=== PATIENT | female | born 1970 | race African-American/Black ===

== ENCOUNTER 2016-12-14 09:08 | Emergency (ER) | payer MEDICARE, MEDICAID ==
[~2016-12-14] VITALS: Ht 157.5 cm; Wt 110.0 kg
[~2016-12-14 09:08] MED LIST: ALBU05 NEB; ARFO15VI2 NEB; BUDE0.5A3 NEB; CLON0.1T PO; CYCL5TAB PO; DIPH25CA83 PO; FURO-151 PO; GABA-531 PO; IPRA0.2S51 IH; LEVE500T19 PO; LOSA50TA20 PO; MONT10TA21 PO; OMEP20CA10 PO; P20 PO; PRED5DRO7 EACHEYE; PRO AIR PO; QUET50TA11 PO; TERBUTALINE GT; THEO200T37 PO; TIOT18CA3 INH; VALPROATE SODIUM GT
[2016-12-14] MEDS ORDERED: SODIUM CHLORIDE 0.9% 1,000 ML IV ONE (09:20)
[2016-12-14] MEDS ORDERED: IPRATROPIUM/ALBUTEROL 0.5-3(2.5)MG/3ML NEB HHN ONE (09:30)
[2016-12-14 10:14] LABS: BASOPHILS % 1.1 % (0.0-2.0); DIFFERENTIAL COMMENT 0; EOSINOPHILS % 0.9 % (0.0-5.0); HEMATOCRIT. 36.8 % (36.0-48.0); HEMOGLOBIN. 11.7 g/dL (12.0-16.0); LYMPHOCYTES % 18.7 % (20.0-50.0); MEAN CORPUSCULAR HEMOGLOBIN 24.5 pg (28.0-32.0); MEAN CORPUSCULAR HGB CONC 31.7 g/dL (31.0-37.0); MEAN CORPUSCULAR VOLUME 77.3 fL (81.0-99.0); MEAN PLATELET VOLUME 7.7 fl (7.4-10.4); MONOCYTES % 5.7 % (2.0-8.0); NEUTROPHILS % 73.6 % (40.0-76.0); PLATELET 380 x1000/uL (130-400); RED BLOOD CELL COUNT 4.77 mill/uL (4.2-5.4); RED CELL DISTRIBUTION WIDTH 19.8 % (11.6-14.6); WHITE BLOOD COUNT 14.9 x1000/uL (4.5-11.0)
[2016-12-14 10:27] LABS: ALANINE AMINOTRANSFERASE 23 IU/L (13-61); ALBUMIN 3.6 g/dL (3.4-5.0); ANION GAP 15; CALCIUM 8.9 mg/dL (8.5-10.1); CARBON DIOXIDE 28 mEq/L (21-32); CHLORIDE 101 mEq/L (98-107); INDEX HEMOLYSI 2 (1-3); INDEX ICTERIC 1 (1-4); INDEX LIPEMIC 1 (1-3); NT PRO B-TYPE NATRIURETIC PEP 97 pg/mL (5-125); TROPONIN I < 0.02 ng/mL (0.00-0.04); UREA NITROGEN BLOOD 15 mg/dL (7-21); eGFR > 60 mL/min (>60)
[2016-12-14 10:32] LABS: LACTIC ACID 2.1 mmol/L (0.4-2.0)
[2016-12-14 10:46] LABS: INR 1.1
[2016-12-14] MEDS ORDERED: ACETYLCYSTEINE 100MG/ML 10% VIAL 4ML INH ONE (12:15)
[2016-12-14] MEDS ORDERED: LORAZEPAM 2MG/ML CPJ IV ONE (12:15)
[2016-12-14 15:34] VITALS: BP 164/92
== END 2016-12-14 21:40 | disposition home or self-care (01) ==
LOC: ER 09:20
DX: J45.909 Unspecified asthma, uncomplicated (principal); I10 Essential (primary) hypertension; R56.9 Unspecified convulsions; Z91.041 Radiographic dye allergy status; Z88.8 Allergy status to other drugs, medicaments and biological substances; Z99.81 Dependence on supplemental oxygen; Z93.0 Tracheostomy status
CPT/HCPCS: 36415; 71010; 80053; 83605; 83880; 84484; 85025; 85610; 87040; 87804; 93005; 94640; 96361; 96374; 99285; J2060; J7030; J7608; J7620

== ENCOUNTER 2017-03-13 23:53 | Inpatient (IN) | payer MEDICARE, MEDICAID ==
[~2017-03-13] VITALS: Ht 152.4 cm; Wt 108.9 kg
[2017-03-14] MEDS ORDERED: SODIUM CHLORIDE 0.9% 1,000 ML IV ONE (00:05)
[2017-03-14] MEDS ORDERED: IPRATROPIUM BROMIDE (0.02%) 0.5MG/2.5ML NEB HHN STA ×2 (00:05→02:17)
[2017-03-14] MEDS ORDERED: MAGNESIUM 2 G PREMIX 50 ML IV ONE (00:15)
[2017-03-14 00:25] LABS: BG BASE EXCESS 1.6 mmol/L (-2.0-2.0); BG CARBOXYHEMOGLOBIN 0.5 % (0.5-1.5); BG DEOXYHEMOGLOBIN 1.6 % (0.0-5.0); BG FRACTION INSPIRED OXYGEN 35; BG HCO3 ACT 24.3 mmol/L (22.0-26.0); BG METHEMOGLOBIN 0.4 % (0.0-1.5); BG OXYGEN SATURATION 98.4 % (92.0-98.5); BG OXYHEMOGLOBIN 97.5 % (94.0-97.0); BG PH 7.512 (7.350-7.450); BG PO2 122.3 mmHg (75.0-100.0); BG SAMPLE SITE RIGHT RADIAL; BG TOTAL HEMOGLOBIN 8.9 g/dL (12.0-18.0); BG VENT MODE MASK - AEROSOL
[2017-03-14] MEDS ORDERED: ALBUTEROL (0.083%) 2.5MG/3ML NEB HHN SCH (00:30)
[2017-03-14 00:34] LABS: BASOPHILS % 2.8 % (0.0-2.0); EOSINOPHILS % 5.6 % (0.0-5.0); HEMATOCRIT. 27.5 % (36.0-48.0); HEMOGLOBIN. 8.3 g/dL (12.0-16.0); LYMPHOCYTES % 23.8 % (20.0-50.0); MEAN CORPUSCULAR HEMOGLOBIN 21.1 pg (28.0-32.0); MEAN CORPUSCULAR VOLUME 69.6 fL (81.0-99.0); MEAN PLATELET VOLUME 8.5 fl (7.4-10.4); MONOCYTES % 9.6 % (2.0-8.0); NEUTROPHILS % 58.2 % (40.0-76.0); PLATELET 211 x1000/uL (130-400); RED BLOOD CELL COUNT 3.95 mill/uL (4.2-5.4); RED CELL DISTRIBUTION WIDTH 22.1 % (11.6-14.6)
[2017-03-14 00:40] LABS: CARBON DIOXIDE 26 mEq/L (21-32); CHLORIDE 108 mEq/L (98-107); TROPONIN I < 0.02 ng/mL (0.00-0.04)
[2017-03-14 00:43] LABS: PLATELET ESTIMATE NORMAL
[2017-03-14] MEDS ORDERED: DIPHENHYDRAMINE 50MG/ML VIAL IV ONE (01:45)
[2017-03-14] MEDS ORDERED: ALBUTEROL (0.083%) 2.5MG/3ML NEB HHN STA (02:17)
[2017-03-14] MEDS ORDERED: MORPHINE SULFATE 4 MG/ML CPJ (NOT FOR IM USE) IV ONE (05:45)
[2017-03-14] MEDS ORDERED: DOCUSATE SODIUM 100MG CAPSULE PO PRN (07:30)
[2017-03-14] MEDS ORDERED: MAGNESIUM/ALUMINUM HYDROXIDE/SIMETHICONE 30ML UDC PO PRN (07:30)
[2017-03-14] MEDS ORDERED: GUAIFENESIN 200MG/10ML SUGAR FREE UDC PO PRN (07:30)
[2017-03-14] MEDS ORDERED: ONDANSETRON HCL 4MG/2ML VIAL IV PRN (07:30)
[2017-03-14] MEDS ORDERED: NA PHOS,M-B/NA PHOS,DI-BA ENEMA 118ML PR PRN (07:30)
[2017-03-14] MEDS ORDERED: ACETAMINOPHEN 325MG TABLET PO PRN (07:30)
[2017-03-14] MEDS ORDERED: CLONIDINE 0.1MG TABLET PO PRN (07:30)
[2017-03-14] MEDS: IPRATROPIUM/ALBUTEROL 0.5-3(2.5)MG/3ML NEB INH PRN ×3 (07:35→21:17)
[2017-03-14 08:40] VITALS: BP 112/63
[2017-03-14] MEDS ORDERED: FUROSEMIDE 40MG/4ML VIAL IVP SCH (10:00)
[2017-03-14] MEDS ORDERED: POTASSIUM CHLORIDE 20MEQ TABLET SR PO SCH (10:00)
[2017-03-14] MEDS: ENOXAPARIN 30MG/0.3ML SYR SUBCUT SCH ×2 (10:11→20:21)
[2017-03-14] MEDS: DIPHENHYDRAMINE 50MG/ML VIAL IV PRN ×3 (10:19→21:41)
[2017-03-14] MEDS: HYDROCODONE/ACETAMINOPHEN 5/325MG TABLET PO PRN ×3 (10:26→20:03)
[2017-03-14 11:10] LABS: CARBON DIOXIDE 26 mEq/L (21-32); CHLORIDE 109 mEq/L (98-107)
[2017-03-14 12:00] VITALS: BP 141/77
[2017-03-14] MEDS: DEXT 5%/0.45% NACL KCL 10MEQ/L 1,000 ML IV SCH (12:09)
[2017-03-14] MEDS: LEVOFLOXACIN 500MG PREMIX 100 ML IV SCH (12:09)
[2017-03-14] MEDS: LORAZEPAM 2MG/ML CPJ IV PRN (12:14)
[2017-03-14] MEDS: TERBUTALINE SULFATE 2.5MG TABLET PO SCH ×2 (13:21→19:49)
[2017-03-14] MEDS: THEOPHYLLINE ANHYDROUS 80 MG/15 ML 120ML PO SCH ×2 (13:22→21:20)
[2017-03-14 16:19] VITALS: BP 132/80
[2017-03-14] MEDS: PREDNISONE 10MG TABLET PO SCH (17:05)
[2017-03-14 20:00] VITALS: BP 130/74
[2017-03-14] MEDS: QUETIAPINE FUMARATE 25MG TABLET PO SCH (20:22)
[2017-03-14] MEDS: LEVETIRACETAM 500MG TABLET PO SCH (20:22)
[2017-03-14] MEDS: HYDROMORPHONE HCL/PF 2MG/ML CPJ IV PRN (20:23)
[2017-03-15] VITALS: BP 118/92
[2017-03-15] MEDS: HYDROMORPHONE HCL/PF 2MG/ML CPJ IV PRN ×6 (00:50→21:43)
[2017-03-15 04:00] VITALS: BP 119/86
[2017-03-15] MEDS: THEOPHYLLINE ANHYDROUS 80 MG/15 ML 120ML PO SCH ×3 (05:32→22:01)
[2017-03-15] MEDS: DIPHENHYDRAMINE 50MG/ML VIAL IV PRN ×3 (05:58→21:43)
[2017-03-15] MEDS: DEXT 5%/0.45% NACL KCL 10MEQ/L 1,000 ML IV SCH ×2 (07:00→13:04)
[2017-03-15] MEDS: IPRATROPIUM/ALBUTEROL 0.5-3(2.5)MG/3ML NEB INH PRN ×4 (07:26→21:15)
[2017-03-15 08:00] VITALS: BP 131/97
[2017-03-15] MEDS: PREDNISONE 10MG TABLET PO SCH ×2 (08:43→17:40)
[2017-03-15] MEDS: TERBUTALINE SULFATE 2.5MG TABLET PO SCH ×3 (08:43→21:49)
[2017-03-15] MEDS: QUETIAPINE FUMARATE 25MG TABLET PO SCH ×2 (08:43→21:49)
[2017-03-15] MEDS: LEVETIRACETAM 500MG TABLET PO SCH ×2 (08:43→21:58)
[2017-03-15] MEDS: ENOXAPARIN 30MG/0.3ML SYR SUBCUT SCH ×2 (08:43→21:00)
[2017-03-15] MEDS: LEVOFLOXACIN 500MG PREMIX 100 ML IV SCH (10:22)
[2017-03-15 12:00] VITALS: BP 133/86
[2017-03-15 16:00] VITALS: BP 135/93
[2017-03-15] MEDS: LORAZEPAM 2MG/ML CPJ IV PRN (16:00)
[2017-03-15 20:00] VITALS: BP 166/105
[2017-03-15] MEDS ORDERED: PANTOPRAZOLE 40MG DR TABLET PO NR (20:30)
[2017-03-16] VITALS: BP 112/80
[2017-03-16] MEDS: IPRATROPIUM/ALBUTEROL 0.5-3(2.5)MG/3ML NEB INH PRN ×3 (01:06→16:13)
[2017-03-16] MEDS: HYDROMORPHONE HCL/PF 2MG/ML CPJ IV PRN ×5 (01:11→21:25)
[2017-03-16] MEDS: DIPHENHYDRAMINE 50MG/ML VIAL IV PRN ×5 (01:11→21:22)
[2017-03-16 04:00] VITALS: BP 102/74
[2017-03-16] MEDS: THEOPHYLLINE ANHYDROUS 80 MG/15 ML 120ML PO SCH ×3 (06:49→23:24)
[2017-03-16] MEDS: PREDNISONE 10MG TABLET PO SCH ×2 (07:04→16:48)
[2017-03-16] MEDS: PANTOPRAZOLE 40MG DR TABLET PO SCH (07:04)
[2017-03-16 08:00] VITALS: BP 123/91
[2017-03-16 08:10] LABS: BASOPHILS % 1.5 % (0.0-2.0); EOSINOPHILS % 8.7 % (0.0-5.0); HEMATOCRIT. 26.2 % (36.0-48.0); HEMOGLOBIN. 7.9 g/dL (12.0-16.0); LYMPHOCYTES % 14.1 % (20.0-50.0); MEAN CORPUSCULAR HEMOGLOBIN 21.1 pg (28.0-32.0); MEAN PLATELET VOLUME 7.4 fl (7.4-10.4); MONOCYTES % 9.2 % (2.0-8.0); NEUTROPHILS % 66.5 % (40.0-76.0); PLATELET 374 x1000/uL (130-400); RED BLOOD CELL COUNT 3.75 mill/uL (4.2-5.4); RED CELL DISTRIBUTION WIDTH 22.5 % (11.6-14.6)
[2017-03-16 08:45] LABS: CARBON DIOXIDE 25 mEq/L (21-32); CHLORIDE 105 mEq/L (98-107)
[2017-03-16] MEDS: ENOXAPARIN 30MG/0.3ML SYR SUBCUT SCH ×3 (09:00→21:24)
[2017-03-16] MEDS: QUETIAPINE FUMARATE 25MG TABLET PO SCH ×2 (09:04→21:22)
[2017-03-16] MEDS: LEVETIRACETAM 500MG TABLET PO SCH ×2 (09:04→21:22)
[2017-03-16] MEDS: TERBUTALINE SULFATE 2.5MG TABLET PO SCH ×3 (09:40→21:22)
[2017-03-16 12:00] VITALS: BP 140/86
[2017-03-16] MEDS: LEVOFLOXACIN 500MG PREMIX 100 ML IV SCH (13:42)
[2017-03-16 16:19] VITALS: BP 139/93
[2017-03-16 20:00] VITALS: BP 124/84
[2017-03-16] MEDS: LORAZEPAM 2MG/ML CPJ IV PRN (22:59)
[2017-03-17] VITALS (7 sets, daily range): BP systolic 111–142; BP diastolic 70–99
[2017-03-17] MEDS: HYDROMORPHONE HCL/PF 2MG/ML CPJ IV PRN ×5 (00:48→21:40)
[2017-03-17] MEDS: DIPHENHYDRAMINE 50MG/ML VIAL IV PRN ×4 (02:36→18:14)
[2017-03-17] MEDS: DEXT 5%/0.45% NACL KCL 10MEQ/L 1,000 ML IV SCH (05:00)
[2017-03-17 06:11] LABS: BASOPHILS % 0.5 % (0.0-2.0); HEMATOCRIT. 24.3 % (36.0-48.0); HEMOGLOBIN. 7.4 g/dL (12.0-16.0); LYMPHOCYTES % 9.5 % (20.0-50.0); MEAN CORPUSCULAR HEMOGLOBIN 21.3 pg (28.0-32.0); MEAN PLATELET VOLUME 7.2 fl (7.4-10.4); MONOCYTES % 9.1 % (2.0-8.0); NEUTROPHILS % 76.9 % (40.0-76.0); PLATELET 385 x1000/uL (130-400); RED BLOOD CELL COUNT 3.48 mill/uL (4.2-5.4); RED CELL DISTRIBUTION WIDTH 22.6 % (11.6-14.6)
[2017-03-17] MEDS: THEOPHYLLINE ANHYDROUS 80 MG/15 ML 120ML PO SCH ×3 (06:12→21:29)
[2017-03-17] MEDS: PANTOPRAZOLE 40MG DR TABLET PO SCH (06:12)
[2017-03-17 06:59] LABS: CARBON DIOXIDE 26 mEq/L (21-32); CHLORIDE 107 mEq/L (98-107)
[2017-03-17] MEDS: PREDNISONE 10MG TABLET PO SCH ×2 (08:04→17:19)
[2017-03-17] MEDS: QUETIAPINE FUMARATE 25MG TABLET PO SCH ×2 (08:04→21:29)
[2017-03-17] MEDS: LEVETIRACETAM 500MG TABLET PO SCH ×2 (08:04→21:29)
[2017-03-17] MEDS: TERBUTALINE SULFATE 2.5MG TABLET PO SCH ×3 (08:04→21:29)
[2017-03-17] MEDS: ENOXAPARIN 30MG/0.3ML SYR SUBCUT SCH ×2 (08:05→21:00)
[2017-03-17] MEDS: IPRATROPIUM/ALBUTEROL 0.5-3(2.5)MG/3ML NEB INH PRN ×2 (08:59→20:58)
[2017-03-17] MEDS: LEVOFLOXACIN 500MG PREMIX 100 ML IV SCH (10:06)
[2017-03-17] MEDS: LORAZEPAM 2MG/ML CPJ IV PRN (18:15)
[2017-03-18] MEDS: IPRATROPIUM/ALBUTEROL 0.5-3(2.5)MG/3ML NEB INH PRN ×3 (00:30→09:19)
[2017-03-18] MEDS: DEXT 5%/0.45% NACL KCL 10MEQ/L 1,000 ML IV SCH (01:00)
[2017-03-18 04:50] VITALS: BP 130/92
[2017-03-18] MEDS: HYDROMORPHONE HCL/PF 2MG/ML CPJ IV PRN (05:01)
[2017-03-18] MEDS: DIPHENHYDRAMINE 50MG/ML VIAL IV PRN (05:03)
[2017-03-18] MEDS: THEOPHYLLINE ANHYDROUS 80 MG/15 ML 120ML PO SCH (05:07)
[2017-03-18] MEDS: PANTOPRAZOLE 40MG DR TABLET PO SCH (05:08)
[2017-03-18 08:00] VITALS: BP 102/71
[2017-03-18] MEDS: ENOXAPARIN 30MG/0.3ML SYR SUBCUT SCH (08:00)
[2017-03-18] MEDS: TERBUTALINE SULFATE 2.5MG TABLET PO SCH (08:19)
[2017-03-18] MEDS: PREDNISONE 10MG TABLET PO SCH (08:19)
[2017-03-18] MEDS: LEVETIRACETAM 500MG TABLET PO SCH (08:19)
[2017-03-18] MEDS: QUETIAPINE FUMARATE 25MG TABLET PO SCH (08:19)
[2017-03-18 09:43] VITALS: BP 102/71
== END 2017-03-18 13:55 | disposition home or self-care (01) | DRG 177 ==
LOC: ER 23:55 → 8WST 03-14 05:46 → EDBEDREQTM 03-14 05:54 → EDBEDREQ 03-14 05:54 → ENRESERV 03-14 07:29
PROVIDERS: ADMIT Internal Medicine; ATTEND Internal Medicine
PROC: 05HA33Z Insertion of Infusion Device into Left Brachial Vein, Percutaneous Approach (ICD-10-PCS; principal; 2017-03-16)
PROC: B54NZZA Ultrasonography of Left Upper Extremity Veins, Guidance (ICD-10-PCS; 2017-03-16)
DX: J69.0 Pneumonitis due to inhalation of food and vomit (principal); J96.20 Acute and chronic respiratory failure, unspecified whether with hypoxia or hypercapnia; J44.1 Chronic obstructive pulmonary disease with (acute) exacerbation; Z68.42 Body mass index [BMI] 45.0-49.9, adult; K94.29 Other complications of gastrostomy; E87.6 Hypokalemia; D63.8 Anemia in other chronic diseases classified elsewhere; E86.0 Dehydration; G40.909 Epilepsy, unspecified, not intractable, without status epilepticus; E66.9 Obesity, unspecified; I10 Essential (primary) hypertension; E11.9 Type 2 diabetes mellitus without complications; E78.5 Hyperlipidemia, unspecified; L25.3 Unspecified contact dermatitis due to other chemical products; J32.9 Chronic sinusitis, unspecified; K21.9 Gastro-esophageal reflux disease without esophagitis; Z86.11 Personal history of tuberculosis; Z93.0 Tracheostomy status; Z91.041 Radiographic dye allergy status; Z88.8 Allergy status to other drugs, medicaments and biological substances; Z91.018 Allergy to other foods; Z79.899 Other long term (current) drug therapy; Z82.49 Family history of ischemic heart disease and other diseases of the circulatory system; Y83.3 Surgical operation with formation of external stoma as the cause of abnormal reaction of the patient, or of later complication, without mention of misadventure at the time of the procedure
CPT/HCPCS: 36415; 36569; 36600; 71010; 76937; 80048; 80053; 82375; 82805; 83880; 84484; 85025; 93005; 94640; 96361; 96365; 96366; 96375; 99285; C1725; C1893; J1170; J1200; J1650; J1940; J1956; J2060; J2270; J3475; J7030; J7512; J7611; J7620

== ENCOUNTER 2017-04-13 10:26 | Inpatient (IN) | payer MEDICARE, MEDICAID ==
[~2017-04-13] VITALS: Ht 157.5 cm; Wt 104.3 kg
[~2017-04-13 10:26] MED LIST changes: +QUET50TA PO; -QUET50TA11 PO; +THEO200T17 PO; -THEO200T37 PO
[2017-04-13] MEDS ORDERED: ALBUTEROL (0.083%) 2.5MG/3ML NEB HHN STA (10:39)
[2017-04-13] MEDS ORDERED: IPRATROPIUM BROMIDE (0.02%) 0.5MG/2.5ML NEB HHN STA (10:39)
[2017-04-13] MEDS ORDERED: SODIUM CHLORIDE 0.9% 1,000 ML IV ONE (10:39)
[2017-04-13] MEDS ORDERED: LEVOFLOXACIN 750MG PREMIX 150 ML IV ONE (11:15)
[2017-04-13] MEDS ORDERED: VANCOMYCIN 1 G PREMIX 200 ML IV SCH (11:15)
[2017-04-13 11:38] LABS: BASOPHILS % 0.5 % (0.0-2.0); EOSINOPHILS % 4.9 % (0.0-5.0); HEMOGLOBIN. 9.4 g/dL (12.0-16.0); LYMPHOCYTES % 21.4 % (20.0-50.0); MEAN CORPUSCULAR HEMOGLOBIN 21.5 pg (28.0-32.0); MEAN PLATELET VOLUME 7.3 fl (7.4-10.4); MONOCYTES % 9.4 % (2.0-8.0); NEUTROPHILS % 63.8 % (40.0-76.0); PLATELET 386 x1000/uL (130-400); RED BLOOD CELL COUNT 4.36 mill/uL (4.2-5.4)
[2017-04-13 11:44] LABS: PARTIAL THROMBOPLASTIN TIME 23.3 sec (24.0-34.0); PROTHROMBIN TIME 10.7 sec
[2017-04-13 11:46] LABS: CHLORIDE 105 mEq/L (98-107)
[2017-04-13 11:48] LABS: CARBON DIOXIDE 29 mEq/L (21-32)
[2017-04-13 11:52] LABS: HCG SCREEN NEGATIVE
[2017-04-13 11:55] LABS: TROPONIN I < 0.02 ng/mL (0.00-0.04)
[2017-04-13 11:57] LABS: PLATELET ESTIMATE NORMAL
[2017-04-13] MEDS ORDERED: POTASSIUM CHLORIDE 20MEQ TABLET SR PO ONE (12:15)
[2017-04-13] MEDS ORDERED: LIDOCAINE HCL/PF 1% 2ML VIAL ONE (12:33)
[2017-04-13 12:54] LABS: BG BASE EXCESS -1.1 mmol/L (-2.0-2.0); BG CARBOXYHEMOGLOBIN 0.3 % (0.5-1.5); BG DEOXYHEMOGLOBIN 1.7 % (0.0-5.0); BG FRACTION INSPIRED OXYGEN 35; BG HCO3 ACT 22.3 mmol/L (22.0-26.0); BG METHEMOGLOBIN 0.1 % (0.0-1.5); BG OXYGEN SATURATION 98.3 % (92.0-98.5); BG OXYHEMOGLOBIN 97.9 % (94.0-97.0); BG PCO2 32.6 mmHg (35.0-45.0); BG PH 7.453 (7.350-7.450); BG PO2 128.4 mmHg (75.0-100.0); BG SAMPLE SITE RIGHT RADIAL; BG TOTAL HEMOGLOBIN 10.1 g/dL (12.0-18.0); BG VENT MODE MASK - AEROSOL
[2017-04-13] MEDS ORDERED: NITROGLYCERIN OINT 1GM/INCH UDPKT TD STA (13:32)
[2017-04-13] MEDS ORDERED: ASPIRIN 81MG TABLET GT STA (13:32)
[2017-04-13] MEDS ORDERED: ONDANSETRON HCL 4MG/2ML VIAL IV STA (13:32)
[2017-04-13] MEDS ORDERED: MORPHINE SULFATE 4 MG/ML CPJ (NOT FOR IM USE) IV STA (13:32)
[2017-04-13] MEDS ORDERED: MORPHINE SULFATE 4 MG/ML CPJ (NOT FOR IM USE) IV ONE (14:12)
[2017-04-13] MEDS ORDERED: ASPIRIN 81MG TABLET ONE (14:13)
[2017-04-13] MEDS ORDERED: NITROGLYCERIN OINT 1GM/INCH UDPKT TD ONE (14:13)
[2017-04-13] MEDS ORDERED: ONDANSETRON HCL 4MG/2ML VIAL ONE (14:13)
[2017-04-13] MEDS ORDERED: DIPHENHYDRAMINE 50MG CAPSULE PO PRN (15:15)
[2017-04-13] MEDS ORDERED: CLONIDINE 0.1MG TABLET PO PRN (15:15)
[2017-04-13] MEDS: DIVALPROEX SODIUM 250MG ER TABLET PO SCH (15:45)
[2017-04-13] MEDS ORDERED: ALPRAZOLAM 0.25 MG TABLET PO PRN (16:15)
[2017-04-13] MEDS: IPRATROPIUM/ALBUTEROL 0.5-3(2.5)MG/3ML NEB HHN SCH ×2 (16:23→21:10)
[2017-04-13] MEDS: PREDNISONE 20MG TABLET PO SCH (16:44)
[2017-04-13] MEDS ORDERED: LEVETIRACETAM 500 MG in SODIUM CHLORIDE 0.9% 100 ML IV SCH (18:00)
[2017-04-13] MEDS: HYDROMORPHONE HCL/PF 2MG/ML CPJ IM PRN ×2 (18:48→22:02)
[2017-04-13] MEDS: LORAZEPAM 1MG TABLET PO PRN (20:01)
[2017-04-13] MEDS: LEVETIRACETAM 500MG/5ML CUP PO SCH (20:01)
[2017-04-13] MEDS: TERBUTALINE SULFATE 2.5MG TABLET PO SCH (20:01)
[2017-04-13] MEDS: QUETIAPINE FUMARATE 50MG TABLET PO SCH (20:01)
[2017-04-13] MEDS: FUROSEMIDE 40MG TABLET PO SCH (20:01)
[2017-04-13] MEDS: CYCLOBENZAPRINE 10MG TABLET PO SCH (20:05)
[2017-04-13] MEDS: DIPHENHYDRAMINE 50MG CAPSULE PO PRN (21:16)
[2017-04-13] MEDS: THEOPHYLLINE ANHYDROUS 80 MG/15 ML 120ML PO SCH (21:16)
[2017-04-14] MEDS: IPRATROPIUM/ALBUTEROL 0.5-3(2.5)MG/3ML NEB HHN SCH ×6 (01:00→21:14)
[2017-04-14] MEDS: THEOPHYLLINE ANHYDROUS 80 MG/15 ML 120ML PO SCH ×3 (05:33→21:23)
[2017-04-14 06:49] LABS: BASOPHILS % 0.2 % (0.0-2.0); EOSINOPHILS % 2.2 % (0.0-5.0); HEMATOCRIT. 29.8 % (36.0-48.0); HEMOGLOBIN. 9.1 g/dL (12.0-16.0); LYMPHOCYTES % 10.5 % (20.0-50.0); MEAN CORPUSCULAR HEMOGLOBIN 21.8 pg (28.0-32.0); MEAN CORPUSCULAR VOLUME 71.1 fL (81.0-99.0); MEAN PLATELET VOLUME 8.6 fl (7.4-10.4); MONOCYTES % 6.1 % (2.0-8.0); PLATELET 325 x1000/uL (130-400); RED CELL DISTRIBUTION WIDTH 25.2 % (11.6-14.6)
[2017-04-14 07:00] LABS: CARBON DIOXIDE 28 mEq/L (21-32); CHLORIDE 104 mEq/L (98-107); THEOPHYLLINE 4.7 ug/mL (10-20)
[2017-04-14] MEDS: HYDROMORPHONE HCL/PF 2MG/ML CPJ IM PRN ×3 (07:07→20:19)
[2017-04-14] MEDS: QUETIAPINE FUMARATE 50MG TABLET PO SCH ×2 (09:30→20:18)
[2017-04-14] MEDS: DIVALPROEX SODIUM 250MG ER TABLET PO SCH (09:30)
[2017-04-14] MEDS: LOSARTAN POTASSIUM 50 MG TABLET PO SCH (09:30)
[2017-04-14] MEDS: FUROSEMIDE 40MG TABLET PO SCH ×2 (09:30→20:18)
[2017-04-14] MEDS: POTASSIUM CHLORIDE 20MEQ TABLET SR PO SCH (09:30)
[2017-04-14] MEDS: TERBUTALINE SULFATE 2.5MG TABLET PO SCH ×3 (09:30→19:51)
[2017-04-14] MEDS: LEVETIRACETAM 500MG/5ML CUP PO SCH ×2 (09:30→20:18)
[2017-04-14] MEDS: PREDNISONE 20MG TABLET PO SCH (09:30)
[2017-04-14] MEDS: DIPHENHYDRAMINE 50MG CAPSULE PO PRN ×3 (12:29→21:21)
[2017-04-14] MEDS: LORAZEPAM 1MG TABLET PO PRN ×2 (12:29→19:51)
[2017-04-14] MEDS: DEXAMETHASONE 10 MG/ML VIAL IV SCH ×2 (14:46→20:57)
[2017-04-14] MEDS: DEXT 5%/0.9% NACL 1,000 ML IV SCH (14:46)
[2017-04-14] MEDS: CYCLOBENZAPRINE 10MG TABLET PO SCH (20:18)
[2017-04-14] MEDS ORDERED: ONDANSETRON HCL 4MG/2ML VIAL IV PRN (21:00)
[2017-04-15] MEDS: IPRATROPIUM/ALBUTEROL 0.5-3(2.5)MG/3ML NEB HHN SCH ×6 (00:17→20:07)
[2017-04-15] MEDS: DIPHENHYDRAMINE 50MG CAPSULE PO PRN ×2 (01:27→05:34)
[2017-04-15] MEDS: HYDROMORPHONE HCL/PF 2MG/ML CPJ IM PRN ×5 (02:42→20:07)
[2017-04-15] MEDS: LORAZEPAM 1MG TABLET PO PRN (02:42)
[2017-04-15] MEDS: DEXAMETHASONE 10 MG/ML VIAL IV SCH (05:40)
[2017-04-15] MEDS: THEOPHYLLINE ANHYDROUS 80 MG/15 ML 120ML PO SCH ×3 (05:42→21:03)
[2017-04-15 06:05] LABS: BASOPHILS % 0.1 % (0.0-2.0); HEMATOCRIT. 27.9 % (36.0-48.0); HEMOGLOBIN. 8.5 g/dL (12.0-16.0); LYMPHOCYTES % 7.2 % (20.0-50.0); MEAN CORPUSCULAR HEMOGLOBIN 21.6 pg (28.0-32.0); MEAN CORPUSCULAR VOLUME 70.7 fL (81.0-99.0); MEAN PLATELET VOLUME 7.9 fl (7.4-10.4); MONOCYTES % 2.7 % (2.0-8.0); PLATELET 357 x1000/uL (130-400); RED BLOOD CELL COUNT 3.94 mill/uL (4.2-5.4); RED CELL DISTRIBUTION WIDTH 25.1 % (11.6-14.6)
[2017-04-15 06:39] LABS: CARBON DIOXIDE 26 mEq/L (21-32); CHLORIDE 100 mEq/L (98-107); THEOPHYLLINE 15.3 ug/mL (10-20)
[2017-04-15] MEDS: DIVALPROEX SODIUM 250MG ER TABLET PO SCH (08:35)
[2017-04-15] MEDS: TERBUTALINE SULFATE 2.5MG TABLET PO SCH ×4 (08:35→20:05)
[2017-04-15] MEDS: QUETIAPINE FUMARATE 50MG TABLET PO SCH ×3 (08:35→20:05)
[2017-04-15] MEDS: LEVETIRACETAM 500MG/5ML CUP PO SCH ×3 (08:35→20:05)
[2017-04-15] MEDS: FUROSEMIDE 40MG TABLET PO SCH ×3 (08:35→20:05)
[2017-04-15] MEDS: POTASSIUM CHLORIDE 20MEQ TABLET SR PO SCH (08:35)
[2017-04-15] MEDS: LOSARTAN POTASSIUM 50 MG TABLET PO SCH ×2 (08:37→08:55)
[2017-04-15 09:15] LABS: BG CARBOXYHEMOGLOBIN 0.3 % (0.5-1.5); BG DEOXYHEMOGLOBIN 0.9 % (0.0-5.0); BG FRACTION INSPIRED OXYGEN 50; BG METHEMOGLOBIN 0.1 % (0.0-1.5); BG OXYGEN SATURATION 99.1 % (92.0-98.5); BG OXYHEMOGLOBIN 98.7 % (94.0-97.0); BG PCO2 34.2 mmHg (35.0-45.0); BG PH 7.515 (7.350-7.450); BG PO2 168.4 mmHg (75.0-100.0); BG PRESSURE SUPPORT 14; BG SAMPLE SITE RIGHT RADIAL; BG TIDAL VOLUME(mL) 650 mL; BG TOTAL HEMOGLOBIN 9.8 g/dL (12.0-18.0); BG VENT MODE VENT - SIMV; BG VENT RATE 6 set
[2017-04-15] MEDS ORDERED: DIPHENHYDRAMINE 50MG CAPSULE PO PRN (11:00)
[2017-04-15] MEDS: POTASSIUM CHLORIDE 20MEQ/PACKET PO SCH (12:18)
[2017-04-15] MEDS: DEXT 5%/0.9% NACL 1,000 ML IV SCH ×2 (12:19→20:06)
[2017-04-15] MEDS ORDERED: LIDOCAINE HCL/PF 1% 2ML VIAL ONE (13:04)
[2017-04-15] MEDS: DIPHENHYDRAMINE 50MG/ML VIAL IV PRN ×2 (13:33→20:05)
[2017-04-15] MEDS: DIPHENHYDRAMINE HCL/ZINC ACET 28 GM CREAM TOP PRN (13:35)
[2017-04-15] MEDS: CYCLOBENZAPRINE 10MG TABLET PO SCH (20:05)
[2017-04-16] MEDS: IPRATROPIUM/ALBUTEROL 0.5-3(2.5)MG/3ML NEB HHN SCH ×6 (00:01→20:21)
[2017-04-16] MEDS: HYDROMORPHONE HCL/PF 2MG/ML CPJ IM PRN ×6 (00:19→23:47)
[2017-04-16] MEDS: DIPHENHYDRAMINE 50MG/ML VIAL IV PRN ×4 (02:05→23:47)
[2017-04-16] MEDS: THEOPHYLLINE ANHYDROUS 80 MG/15 ML 120ML PO SCH ×3 (05:04→22:46)
[2017-04-16 07:42] LABS: CARBON DIOXIDE 29 mEq/L (21-32); CHLORIDE 103 mEq/L (98-107); THEOPHYLLINE 14.1 ug/mL (10-20)
[2017-04-16] MEDS: QUETIAPINE FUMARATE 50MG TABLET PO SCH ×2 (08:09→20:15)
[2017-04-16] MEDS: LOSARTAN POTASSIUM 50 MG TABLET PO SCH (08:09)
[2017-04-16] MEDS: PREDNISONE 20MG TABLET PO SCH (08:09)
[2017-04-16] MEDS: FUROSEMIDE 40MG TABLET PO SCH ×2 (08:09→20:14)
[2017-04-16] MEDS: LEVETIRACETAM 500MG/5ML CUP PO SCH ×2 (08:09→20:13)
[2017-04-16] MEDS: DIVALPROEX SODIUM 250MG ER TABLET PO SCH (08:09)
[2017-04-16] MEDS: TERBUTALINE SULFATE 2.5MG TABLET PO SCH ×3 (08:09→20:12)
[2017-04-16] MEDS: POTASSIUM CHLORIDE 20MEQ/PACKET PO SCH (08:09)
[2017-04-16 13:25] LABS: HEMOGLOBIN. 8.1 g/dL (12.0-16.0); MEAN CORPUSCULAR HEMOGLOBIN 21.6 pg (28.0-32.0); MEAN CORPUSCULAR VOLUME 71.8 fL (81.0-99.0); MEAN PLATELET VOLUME 7.6 fl (7.4-10.4); PLATELET 284 x1000/uL (130-400); RED BLOOD CELL COUNT 3.76 mill/uL (4.2-5.4); RED CELL DISTRIBUTION WIDTH 25.4 % (11.6-14.6)
[2017-04-16 14:06] LABS: PLATELET ESTIMATE NORMAL
[2017-04-16 17:49] LABS: BG BASE EXCESS -4.6 mmol/L (-2.0-2.0); BG CARBOXYHEMOGLOBIN 0.3 % (0.5-1.5); BG DEOXYHEMOGLOBIN 5.3 % (0.0-5.0); BG FRACTION INSPIRED OXYGEN 21; BG HCO3 ACT 22.1 mmol/L (22.0-26.0); BG METHEMOGLOBIN 0.1 % (0.0-1.5); BG OXYGEN SATURATION 94.7 % (92.0-98.5); BG OXYHEMOGLOBIN 94.3 % (94.0-97.0); BG PCO2 47.9 mmHg (35.0-45.0); BG PH 7.281 (7.350-7.450); BG PO2 75.4 mmHg (75.0-100.0); BG SAMPLE SITE RIGHT RADIAL; BG TOTAL HEMOGLOBIN 10.4 g/dL (12.0-18.0); BG VENT MODE ROOM AIR
[2017-04-16] MEDS: CYCLOBENZAPRINE 10MG TABLET PO SCH (20:13)
[2017-04-16] MEDS: DIPHENHYDRAMINE HCL/ZINC ACET 28 GM CREAM TOP PRN (22:31)
[2017-04-17] MEDS: IPRATROPIUM/ALBUTEROL 0.5-3(2.5)MG/3ML NEB HHN SCH ×6 (00:36→20:18)
[2017-04-17] MEDS: HYDROMORPHONE HCL/PF 2MG/ML CPJ IM PRN ×4 (04:24→19:44)
[2017-04-17] MEDS: THEOPHYLLINE ANHYDROUS 80 MG/15 ML 120ML PO SCH ×3 (06:03→22:14)
[2017-04-17 07:47] LABS: BASOPHILS % 0.4 % (0.0-2.0); EOSINOPHILS % 2.2 % (0.0-5.0); HEMATOCRIT. 29.5 % (36.0-48.0); HEMOGLOBIN. 8.6 g/dL (12.0-16.0); LYMPHOCYTES % 16.9 % (20.0-50.0); MEAN CORPUSCULAR VOLUME 71.5 fL (81.0-99.0); MEAN PLATELET VOLUME 8.9 fl (7.4-10.4); MONOCYTES % 6.4 % (2.0-8.0); NEUTROPHILS % 74.1 % (40.0-76.0); PLATELET 317 x1000/uL (130-400); RED BLOOD CELL COUNT 4.12 mill/uL (4.2-5.4); RED CELL DISTRIBUTION WIDTH 25.4 % (11.6-14.6)
[2017-04-17 08:15] LABS: CARBON DIOXIDE 30 mEq/L (21-32); CHLORIDE 100 mEq/L (98-107); THEOPHYLLINE 5.4 ug/mL (10-20)
[2017-04-17] MEDS: LOSARTAN POTASSIUM 50 MG TABLET PO SCH (08:35)
[2017-04-17] MEDS: TERBUTALINE SULFATE 2.5MG TABLET PO SCH ×3 (08:35→20:51)
[2017-04-17] MEDS: DIVALPROEX SODIUM 250MG ER TABLET PO SCH (08:35)
[2017-04-17] MEDS: PREDNISONE 20MG TABLET PO SCH (08:35)
[2017-04-17] MEDS: FUROSEMIDE 40MG TABLET PO SCH ×2 (08:35→20:51)
[2017-04-17] MEDS: LEVETIRACETAM 500MG/5ML CUP PO SCH ×2 (08:35→20:51)
[2017-04-17] MEDS: POTASSIUM CHLORIDE 20MEQ/PACKET PO SCH (08:35)
[2017-04-17] MEDS: DIPHENHYDRAMINE 50MG/ML VIAL IV PRN ×2 (08:37→19:43)
[2017-04-17] MEDS: QUETIAPINE FUMARATE 50MG TABLET PO SCH ×2 (08:37→20:51)
[2017-04-17] MEDS: DEXT 5%/0.9% NACL 1,000 ML IV SCH (11:10)
[2017-04-17] MEDS: CYCLOBENZAPRINE 10MG TABLET PO SCH (20:51)
[2017-04-18] MEDS: IPRATROPIUM/ALBUTEROL 0.5-3(2.5)MG/3ML NEB HHN SCH ×6 (00:15→20:05)
[2017-04-18] MEDS: HYDROMORPHONE HCL/PF 2MG/ML CPJ IM PRN ×5 (01:14→22:33)
[2017-04-18] MEDS: DIPHENHYDRAMINE 50MG/ML VIAL IV PRN ×4 (01:50→22:32)
[2017-04-18] MEDS: THEOPHYLLINE ANHYDROUS 80 MG/15 ML 120ML PO SCH ×3 (05:16→20:54)
[2017-04-18 07:06] LABS: CARBON DIOXIDE 34 mEq/L (21-32); CHLORIDE 97 mEq/L (98-107); THEOPHYLLINE 8.1 ug/mL (10-20)
[2017-04-18] MEDS: DIVALPROEX SODIUM 250MG ER TABLET PO SCH (08:18)
[2017-04-18] MEDS: TERBUTALINE SULFATE 2.5MG TABLET PO SCH ×3 (08:18→20:53)
[2017-04-18] MEDS: QUETIAPINE FUMARATE 50MG TABLET PO SCH ×2 (08:18→20:53)
[2017-04-18] MEDS: FUROSEMIDE 40MG TABLET PO SCH ×2 (08:18→20:53)
[2017-04-18] MEDS: POTASSIUM CHLORIDE 20MEQ/PACKET PO SCH (08:18)
[2017-04-18] MEDS: LEVETIRACETAM 500MG/5ML CUP PO SCH ×2 (08:19→20:53)
[2017-04-18] MEDS: LOSARTAN POTASSIUM 50 MG TABLET PO SCH (08:19)
[2017-04-18] MEDS: PREDNISONE 20MG TABLET PO SCH (08:19)
[2017-04-18] MEDS: DEXT 5%/0.9% NACL 1,000 ML IV SCH (12:00)
[2017-04-18] MEDS: CYCLOBENZAPRINE 10MG TABLET PO SCH (20:53)
[2017-04-18 21:14] LABS: CARBON DIOXIDE 32 mEq/L (21-32); CHLORIDE 95 mEq/L (98-107)
[2017-04-19] MEDS: IPRATROPIUM/ALBUTEROL 0.5-3(2.5)MG/3ML NEB HHN SCH ×6 (00:18→22:13)
[2017-04-19] MEDS: DIPHENHYDRAMINE HCL/ZINC ACET 28 GM CREAM TOP PRN ×2 (00:53→23:19)
[2017-04-19] MEDS: HYDROMORPHONE HCL/PF 2MG/ML CPJ IM PRN ×5 (04:59→23:51)
[2017-04-19] MEDS: THEOPHYLLINE ANHYDROUS 80 MG/15 ML 120ML PO SCH ×3 (05:00→23:18)
[2017-04-19] MEDS ORDERED: CYCL5TAB PO (08:25)
[2017-04-19] MEDS: DIVALPROEX SODIUM 250MG ER TABLET PO SCH (08:50)
[2017-04-19] MEDS: FUROSEMIDE 40MG TABLET PO SCH ×2 (08:50→20:20)
[2017-04-19] MEDS: LOSARTAN POTASSIUM 50 MG TABLET PO SCH (08:50)
[2017-04-19] MEDS: TERBUTALINE SULFATE 2.5MG TABLET PO SCH ×2 (08:50→13:31)
[2017-04-19] MEDS: QUETIAPINE FUMARATE 50MG TABLET PO SCH ×2 (08:50→20:20)
[2017-04-19] MEDS: LEVETIRACETAM 500MG/5ML CUP PO SCH ×2 (08:50→20:20)
[2017-04-19] MEDS: PREDNISONE 20MG TABLET PO SCH (08:50)
[2017-04-19] MEDS: DIPHENHYDRAMINE 50MG/ML VIAL IV PRN ×2 (08:50→20:20)
[2017-04-19] MEDS: POTASSIUM CHLORIDE 20MEQ/PACKET PO SCH (08:54)
[2017-04-19] MEDS: CYCLOBENZAPRINE 10MG TABLET PO SCH (20:20)
[2017-04-20] MEDS: IPRATROPIUM/ALBUTEROL 0.5-3(2.5)MG/3ML NEB HHN SCH ×5 (01:32→15:47)
[2017-04-20] MEDS: DIPHENHYDRAMINE 50MG/ML VIAL IV PRN ×3 (05:59→16:50)
[2017-04-20] MEDS: THEOPHYLLINE ANHYDROUS 80 MG/15 ML 120ML PO SCH ×2 (06:00→14:25)
[2017-04-20] MEDS: HYDROMORPHONE HCL/PF 2MG/ML CPJ IM PRN ×4 (06:00→16:50)
[2017-04-20] MEDS: LOSARTAN POTASSIUM 50 MG TABLET PO SCH (09:16)
[2017-04-20] MEDS: PREDNISONE 20MG TABLET PO SCH (09:16)
[2017-04-20] MEDS: QUETIAPINE FUMARATE 50MG TABLET PO SCH (09:16)
[2017-04-20] MEDS: FUROSEMIDE 40MG TABLET PO SCH (09:16)
[2017-04-20] MEDS: LEVETIRACETAM 500MG/5ML CUP PO SCH (09:17)
[2017-04-20] MEDS: TERBUTALINE SULFATE 2.5MG TABLET PO SCH ×2 (09:17→14:24)
[2017-04-20] MEDS: DIVALPROEX SODIUM 250MG ER TABLET PO SCH (09:17)
[2017-04-20] MEDS: POTASSIUM CHLORIDE 20MEQ/PACKET PO SCH (09:17)
[2017-04-20] MEDS: DEXT 5%/0.9% NACL 1,000 ML IV SCH (12:00)
[2017-04-20] MEDS: DIPHENHYDRAMINE 50MG CAPSULE PO PRN (12:43)
[2017-04-20 13:09] LABS: BG BASE EXCESS 10.7 mmol/L (-2.0-2.0); BG CARBOXYHEMOGLOBIN 0.2 % (0.5-1.5); BG DEOXYHEMOGLOBIN 9.3 % (0.0-5.0); BG METHEMOGLOBIN 0.3 % (0.0-1.5); BG OXYGEN SATURATION 90.7 % (92.0-98.5); BG OXYHEMOGLOBIN 90.2 % (94.0-97.0); BG PCO2 51.4 mmHg (35.0-45.0); BG PH 7.463 (7.350-7.450); BG PO2 63.4 mmHg (75.0-100.0); BG SAMPLE SITE RIGHT RADIAL; BG TOTAL HEMOGLOBIN 10.7 g/dL (12.0-18.0); BG VENT MODE ROOM AIR
[2017-04-20 17:01] VITALS: BP 142/79
== END 2017-04-20 17:50 | disposition home or self-care (01) | DRG 208 ==
LOC: ER 11:02 → EDBEDREQ 12:05 → ENRESERV 12:28 → 5EST 15:15
PROVIDERS: ADMIT Internal Medicine Pulmonary Disease; ATTEND Internal Medicine Pulmonary Disease
PROC: 5A1945Z Respiratory Ventilation, 24-96 Consecutive Hours (ICD-10-PCS; principal; 2017-04-14)
PROC: 02HV33Z Insertion of Infusion Device into Superior Vena Cava, Percutaneous Approach (ICD-10-PCS; 2017-04-14)
PROC: B548ZZA Ultrasonography of Superior Vena Cava, Guidance (ICD-10-PCS; 2017-04-14)
PROC: 5A1D00Z (ICD-10-PCS; 2017-04-18)
DX: J45.902 Unspecified asthma with status asthmaticus (principal); I13.2 Hypertensive heart and chronic kidney disease with heart failure and with stage 5 chronic kidney disease, or end stage renal disease; J96.10 Chronic respiratory failure, unspecified whether with hypoxia or hypercapnia; N18.6 End stage renal disease; I50.30 Unspecified diastolic (congestive) heart failure; J98.11 Atelectasis; Z68.41 Body mass index [BMI] 40.0-44.9, adult; D50.9 Iron deficiency anemia, unspecified; E11.21 Type 2 diabetes mellitus with diabetic nephropathy; E66.9 Obesity, unspecified; E78.00 Pure hypercholesterolemia, unspecified; E87.6 Hypokalemia; E88.81 Metabolic syndrome and other insulin resistance; F32.9 Major depressive disorder, single episode, unspecified; F41.9 Anxiety disorder, unspecified; G40.909 Epilepsy, unspecified, not intractable, without status epilepticus; G43.909 Migraine, unspecified, not intractable, without status migrainosus; H40.9 Unspecified glaucoma; I49.3 Ventricular premature depolarization; K21.9 Gastro-esophageal reflux disease without esophagitis; K64.9 Unspecified hemorrhoids; E11.22 Type 2 diabetes mellitus with diabetic chronic kidney disease; K59.00 Constipation, unspecified; M54.9 Dorsalgia, unspecified; M19.90 Unspecified osteoarthritis, unspecified site; J32.9 Chronic sinusitis, unspecified; I83.90 Asymptomatic varicose veins of unspecified lower extremity; M81.0 Age-related osteoporosis without current pathological fracture; Z93.0 Tracheostomy status; Z99.2 Dependence on renal dialysis; Z88.6 Allergy status to analgesic agent; Z91.041 Radiographic dye allergy status; Z88.8 Allergy status to other drugs, medicaments and biological substances; Z91.018 Allergy to other foods; Z79.899 Other long term (current) drug therapy; Z79.52 Long term (current) use of systemic steroids; Z87.891 Personal history of nicotine dependence; Z86.73 Personal history of transient ischemic attack (TIA), and cerebral infarction without residual deficits; Z82.49 Family history of ischemic heart disease and other diseases of the circulatory system
CPT/HCPCS: 36415; 36569; 36600; 71010; 76937; 80048; 80053; 80198; 82375; 82805; 83605; 83690; 83735; 83880; 84484; 84703; 85025; 85610; 85730; 87040; 93005; 93306; 94002; 94003; 94620; 94640; 96365; 96368; 96375; 99291; C1725; J1100; J1170; J1200; J1953; J1956; J2270; J2405; J3370; J3490; J7030; J7042; J7050; J7070; J7512; J7611; J7620; Q0163

== ENCOUNTER 2017-05-14 19:04 | Emergency (ER) | payer MEDICARE, MEDICAID ==
[~2017-05-14] VITALS: Ht 157.5 cm; Wt 78.6 kg
[2017-05-14] MEDS ORDERED: SODIUM CHLORIDE 0.9% 500 ML IV ONE (21:24)
[2017-05-14 22:06] LABS: CHLORIDE 99 mEq/L (98-107)
[2017-05-14 22:08] LABS: PROTHROMBIN TIME 10.1 sec (9.4-11.6)
[2017-05-14 22:11] LABS: PARTIAL THROMBOPLASTIN TIME < 20.0 sec (23.4-31.0)
[2017-05-14 22:13] LABS: CARBON DIOXIDE 28 mEq/L (21-32)
[2017-05-14 22:18] LABS: TROPONIN I < 0.02 ng/mL (0.00-0.04)
[2017-05-14] MEDS ORDERED: IPRATROPIUM BROMIDE (0.02%) 0.5MG/2.5ML NEB HHN STA (23:07)
[2017-05-14] MEDS ORDERED: ALBUTEROL (0.083%) 2.5MG/3ML NEB HHN STA (23:07)
[2017-05-14 23:45] LABS: BASOPHILS % 0.6 % (0.0-2.0); EOSINOPHILS % 0.3 % (0.0-5.0); HEMATOCRIT. 28.4 % (36.0-48.0); HEMOGLOBIN. 8.8 g/dL (12.0-16.0); LYMPHOCYTES % 12.8 % (20.0-50.0); MEAN CORPUSCULAR HEMOGLOBIN 22.5 pg (28.0-32.0); MEAN CORPUSCULAR VOLUME 72.2 fL (81.0-99.0); MEAN PLATELET VOLUME 8.5 fl (7.4-10.4); MONOCYTES % 6.2 % (2.0-8.0); NEUTROPHILS % 80.1 % (40.0-76.0); PLATELET 208 x1000/uL (130-400); RED BLOOD CELL COUNT 3.94 mill/uL (4.2-5.4); RED CELL DISTRIBUTION WIDTH 23.8 % (11.6-14.6)
[2017-05-14 23:55] LABS: PLATELET ESTIMATE NORMAL
[2017-05-15 00:06] LABS: HCG SCREEN NEGATIVE
[2017-05-15 01:30] VITALS: BP 135/79
== END 2017-05-15 02:11 | disposition home or self-care (01) ==
LOC: ER 21:06
DX: S09.8XXA Other specified injuries of head, initial encounter (principal); R07.89 Other chest pain; M25.562 Pain in left knee; M54.2 Cervicalgia; I10 Essential (primary) hypertension; J44.9 Chronic obstructive pulmonary disease, unspecified; F41.9 Anxiety disorder, unspecified; E11.9 Type 2 diabetes mellitus without complications; R56.9 Unspecified convulsions; W10.9XXA Fall (on) (from) unspecified stairs and steps, initial encounter; Y93.01 Activity, walking, marching and hiking; Y99.8 Other external cause status; Y92.89 Other specified places as the place of occurrence of the external cause; Z88.8 Allergy status to other drugs, medicaments and biological substances; Z93.0 Tracheostomy status; Z93.1 Gastrostomy status; Z91.018 Allergy to other foods
CPT/HCPCS: 36415; 70450; 70486; 71010; 72125; 72170; 73562; 73590; 73610; 80053; 82962; 83690; 83880; 84484; 84703; 85025; 85610; 85730; 86850; 86900; 86901; 93005; 94640; 96360; 99285; J7040; J7611

== ENCOUNTER 2017-06-03 13:10 | Inpatient (IN) | payer MEDICARE, MEDICAID ==
[~2017-06-03] VITALS: Ht 160 cm; Wt 117.5 kg
[2017-06-03 13:45] LABS: BG BASE EXCESS 2.3 mmol/L (-2.0-2.0); BG CARBOXYHEMOGLOBIN 0.1 % (0.5-1.5); BG DEOXYHEMOGLOBIN 2.3 % (0.0-5.0); BG FRACTION INSPIRED OXYGEN 50; BG HCO3 ACT 27.4 mmol/L (22.0-26.0); BG OXYGEN SATURATION 97.7 % (92.0-98.5); BG OXYHEMOGLOBIN 97.6 % (94.0-97.0); BG PCO2 44.9 mmHg (35.0-45.0); BG PH 7.404 (7.350-7.450); BG PO2 104.9 mmHg (75.0-100.0); BG SAMPLE SITE RIGHT BRACHIAL; BG VENT MODE MASK - VENTI
[2017-06-03] MEDS ORDERED: LEVOFLOXACIN 750MG PREMIX 150 ML IV ONE (16:15)
[2017-06-03] MEDS ORDERED: MORPHINE SULFATE 4 MG/ML CPJ (NOT FOR IM USE) IV ONE (16:45)
[2017-06-03] MEDS ORDERED: ACETAMINOPHEN 325MG TABLET PO PRN (17:45)
[2017-06-03] MEDS ORDERED: CLONIDINE 0.1MG TABLET PO PRN (17:45)
[2017-06-03] MEDS ORDERED: IPRATROPIUM/ALBUTEROL 0.5-3(2.5)MG/3ML NEB INH PRN (17:45)
[2017-06-03] MEDS: ONDANSETRON HCL 4MG/2ML VIAL IV PRN (22:36)
[2017-06-03] MEDS: DIPHENHYDRAMINE 50MG/ML VIAL IV PRN (22:36)
[2017-06-03] MEDS ORDERED: POTA20TA82 PO (22:51)
[2017-06-03] MEDS ORDERED: DIVA250T45 PO (22:51)
[2017-06-03] MEDS ORDERED: TRAZ-132 PO (22:51)
[2017-06-03] MEDS ORDERED: GABA-531 PO (22:51)
[2017-06-03] MEDS ORDERED: LOSA100T14 PO (22:51)
[2017-06-03] MEDS ORDERED: AMLO5TAB88 PO (22:51)
[2017-06-03] MEDS ORDERED: FURO40TA5 PO (22:51)
[2017-06-03] MEDS ORDERED: FLOV22 INH (22:51)
[2017-06-03] MEDS ORDERED: MONT10TA24 PO (22:51)
[2017-06-03] MEDS ORDERED: TERB2.5T2 PO (22:51)
[2017-06-03] MEDS ORDERED: ZOLP5TAB8 PO (22:51)
[2017-06-03] MEDS ORDERED: THEO80SO4 PO (22:51)
[2017-06-03] MEDS ORDERED: LEVE500T19 PO (22:51)
[2017-06-03] MEDS: IPRATROPIUM/ALBUTEROL 0.5-3(2.5)MG/3ML NEB INH SCH (23:33)
[2017-06-04] VITALS (10 sets, daily range): BP systolic 97–181; BP diastolic 70–90
[2017-06-04 00:24] LABS: HEMATOCRIT. 28.9 % (36.0-48.0); HEMOGLOBIN. 8.6 g/dL (12.0-16.0); MEAN CORPUSCULAR HEMOGLOBIN 21.6 pg (28.0-32.0); MEAN CORPUSCULAR VOLUME 72.3 fL (81.0-99.0); MEAN PLATELET VOLUME 7.4 fl (7.4-10.4); PLATELET 386 x1000/uL (130-400); RED BLOOD CELL COUNT 3.99 mill/uL (4.2-5.4)
[2017-06-04 00:33] LABS: PARTIAL THROMBOPLASTIN TIME 25.7 sec (23.4-31.0); PROTHROMBIN TIME 10.5 sec (9.4-11.6)
[2017-06-04 01:06] LABS: CARBON DIOXIDE 30 mEq/L (21-32); CHLORIDE 100 mEq/L (98-107); TROPONIN I < 0.02 ng/mL (0.00-0.04)
[2017-06-04 02:37] LABS: NUCLEATED RED BLOOD CELLS 1 /100 WBC; PLATELET ESTIMATE NORMAL
[2017-06-04] MEDS: IPRATROPIUM/ALBUTEROL 0.5-3(2.5)MG/3ML NEB INH SCH ×3 (03:33→20:33)
[2017-06-04] MEDS: DIPHENHYDRAMINE 50MG/ML VIAL IV PRN ×2 (04:18→19:40)
[2017-06-04] MEDS: ONDANSETRON HCL 4MG/2ML VIAL IV PRN (04:18)
[2017-06-04] MEDS ORDERED: P20 PO (12:45)
[2017-06-04] MEDS ORDERED: ZOLPIDEM TARTRATE 5MG TABLET PO PRN (12:45)
[2017-06-04] MEDS: TERBUTALINE SULFATE 2.5MG TABLET PO SCH ×2 (13:00→16:48)
[2017-06-04] MEDS: GABAPENTIN 300MG CAPSULE PO SCH ×2 (13:00→16:48)
[2017-06-04] MEDS ORDERED: LEVOFLOXACIN 500MG PREMIX 100 ML IV SCH (14:00)
[2017-06-04] MEDS: THEOPHYLLINE ANHYDROUS 80 MG/15 ML 120ML PO SCH ×2 (16:00→22:00)
[2017-06-04] MEDS: BUDESONIDE 0.5MG/2ML NEB HHN SCH (16:32)
[2017-06-04] MEDS: LEVETIRACETAM 500MG TABLET PO SCH (16:47)
[2017-06-04] MEDS ORDERED: FLUTICASONE PROPIONATE INH SCH (17:00)
[2017-06-04] MEDS ORDERED: DEXTROSE 50% WATER 50ML SYRINGE IV PRN (18:15)
[2017-06-04] MEDS ORDERED: QUET50TA21 PO (19:13)
[2017-06-04] MEDS: HYDROCODONE/ACETAMINOPHEN 5/325MG TABLET PO PRN (19:40)
[2017-06-04] MEDS: QUETIAPINE FUMARATE 50MG TABLET PO SCH (20:56)
[2017-06-04] MEDS: TRAZODONE HCL 100MG TABLET PO SCH (20:56)
[2017-06-04] MEDS: MONTELUKAST SODIUM 10MG TABLET PO SCH (20:56)
[2017-06-04] MEDS: BLOOD SUGAR DIAGNOSTIC STRIP TEST SCH (21:00)
[2017-06-04] MEDS: INSULIN LISPRO 100 UNITS/ML SUBCUT SCH (21:00)
[2017-06-05] VITALS (7 sets, daily range): BP systolic 115–146; BP diastolic 54–92
[2017-06-05] MEDS: IPRATROPIUM/ALBUTEROL 0.5-3(2.5)MG/3ML NEB INH SCH ×6 (00:44→21:19)
[2017-06-05] MEDS: BUDESONIDE 0.5MG/2ML NEB HHN SCH ×3 (04:44→21:19)
[2017-06-05 05:27] LABS: HEMATOCRIT. 26.3 % (36.0-48.0); MEAN CORPUSCULAR HEMOGLOBIN 22.1 pg (28.0-32.0); MEAN CORPUSCULAR VOLUME 72.4 fL (81.0-99.0); MEAN PLATELET VOLUME 7.4 fl (7.4-10.4); PLATELET 361 x1000/uL (130-400); RED BLOOD CELL COUNT 3.64 mill/uL (4.2-5.4); RED CELL DISTRIBUTION WIDTH 22.8 % (11.6-14.6)
[2017-06-05 05:42] LABS: CARBON DIOXIDE 34 mEq/L (21-32); CHLORIDE 102 mEq/L (98-107); LDL CHOLESTEROL 99 mg/dL (5-100); TROPONIN I < 0.02 ng/mL (0.00-0.04)
[2017-06-05 05:47] LABS: HDL CHOLESTEROL 57 mg/dL (40-59)
[2017-06-05] MEDS: THEOPHYLLINE ANHYDROUS 80 MG/15 ML 120ML PO SCH ×3 (06:00→21:21)
[2017-06-05 07:13] LABS: THEOPHYLLINE < 2.0 ug/mL (10-20)
[2017-06-05] MEDS: BLOOD SUGAR DIAGNOSTIC STRIP TEST SCH ×4 (07:30→21:00)
[2017-06-05] MEDS: INSULIN LISPRO 100 UNITS/ML SUBCUT SCH ×4 (08:00→22:08)
[2017-06-05] MEDS: LOSARTAN POTASSIUM 100 MG TABLET PO SCH (09:00)
[2017-06-05] MEDS ORDERED: AMLODIPINE 5MG TABLET PO SCH (09:00)
[2017-06-05] MEDS ORDERED: PREDNISONE 20MG TABLET PO SCH (09:00)
[2017-06-05] MEDS: FUROSEMIDE 40MG TABLET PO SCH (09:41)
[2017-06-05] MEDS: TERBUTALINE SULFATE 2.5MG TABLET PO SCH ×3 (09:41→16:41)
[2017-06-05] MEDS: GABAPENTIN 300MG CAPSULE PO SCH ×3 (09:41→16:41)
[2017-06-05] MEDS: POTASSIUM CHLORIDE 20MEQ TABLET SR PO SCH (09:42)
[2017-06-05] MEDS: LEVETIRACETAM 500MG TABLET PO SCH ×2 (09:42→16:41)
[2017-06-05] MEDS: QUETIAPINE FUMARATE 50MG TABLET PO SCH ×2 (09:42→21:19)
[2017-06-05] MEDS: DIPHENHYDRAMINE 50MG/ML VIAL IV PRN ×2 (13:34→21:30)
[2017-06-05] MEDS: HYDROCODONE/ACETAMINOPHEN 5/325MG TABLET PO PRN (13:37)
[2017-06-05] MEDS: LEVOFLOXACIN 500MG PREMIX 100 ML IV SCH (14:00)
[2017-06-05 14:24] LABS: NUCLEATED RED BLOOD CELLS 1 /100 WBC; PLATELET ESTIMATE NORMAL
[2017-06-05] MEDS: PREDNISONE 20MG TABLET PO SCH (16:41)
[2017-06-05] MEDS: HYDROMORPHONE HCL/PF 2MG/ML CPJ IV PRN ×2 (16:45→21:20)
[2017-06-05 20:38] LABS: CLARITY URINE CLEAR (CLEAR); COLOR URINE YELLOW (YELLOW); GLUCOSE URINE NEGATIVE (NEGATIVE); KETONES URINE NEGATIVE (NEGATIVE); LEUKOCYTE ESTERASE URINE 1+ (NEGATIVE); NITRITE URINE NEGATIVE (NEGATIVE); OCCULT BLOOD URINE 2+ (NEGATIVE); PROTEIN URINE NEGATIVE (NEGATIVE); SPECIFIC GRAVITY URINE 1.009 (1.005-1.030); UROBILINOGEN URINE 0.2 E.U./dL (0.2-1.0)
[2017-06-05 20:53] LABS: *AMPHETAMINES SCREEN URINE NEGATIVE (NEGATIVE); *BARBITURATES SCREEN URINE NEGATIVE (NEGATIVE); *BENZODIAZEPINES SCREEN URINE NEGATIVE (NEGATIVE); *COCAINE SCREEN URINE NEGATIVE (NEGATIVE); CANNABINOID URINE SCREEN NEGATIVE (NEGATIVE); METHADONE URINE SCREEN NEGATIVE (NEGATIVE); PHENCYCLIDINE URINE SCREEN NEGATIVE (NEGATIVE)
[2017-06-05 21:04] LABS: OPIATES URINE SCREEN PRESUMTIVE POSITIVE (NEGATIVE)
[2017-06-05] MEDS: MONTELUKAST SODIUM 10MG TABLET PO SCH (21:19)
[2017-06-05] MEDS: TRAZODONE HCL 100MG TABLET PO SCH (21:19)
[2017-06-06] MEDS: IPRATROPIUM/ALBUTEROL 0.5-3(2.5)MG/3ML NEB INH SCH ×6 (00:58→20:20)
[2017-06-06] MEDS: THEOPHYLLINE ANHYDROUS 80 MG/15 ML 120ML PO SCH ×3 (06:11→21:29)
[2017-06-06] MEDS: BLOOD SUGAR DIAGNOSTIC STRIP TEST SCH ×4 (07:30→21:01)
[2017-06-06] MEDS: BUDESONIDE 0.5MG/2ML NEB HHN SCH ×2 (07:36→20:20)
[2017-06-06] MEDS: INSULIN LISPRO 100 UNITS/ML SUBCUT SCH ×4 (08:00→21:00)
[2017-06-06] MEDS: LOSARTAN POTASSIUM 100 MG TABLET PO SCH (09:10)
[2017-06-06] MEDS: TERBUTALINE SULFATE 2.5MG TABLET PO SCH ×3 (09:10→17:43)
[2017-06-06] MEDS: FUROSEMIDE 40MG TABLET PO SCH (09:10)
[2017-06-06] MEDS: GABAPENTIN 300MG CAPSULE PO SCH ×3 (09:10→17:43)
[2017-06-06] MEDS: POTASSIUM CHLORIDE 20MEQ TABLET SR PO SCH (09:10)
[2017-06-06] MEDS: LEVETIRACETAM 500MG TABLET PO SCH ×2 (09:10→17:43)
[2017-06-06] MEDS: QUETIAPINE FUMARATE 50MG TABLET PO SCH ×2 (09:11→20:59)
[2017-06-06] MEDS: PREDNISONE 20MG TABLET PO SCH ×2 (09:11→17:43)
[2017-06-06] MEDS: HYDROMORPHONE HCL/PF 2MG/ML CPJ IV PRN ×2 (09:29→20:40)
[2017-06-06] MEDS: DIPHENHYDRAMINE 50MG/ML VIAL IV PRN ×2 (09:30→20:40)
[2017-06-06 10:25] LABS: BG BASE EXCESS 7.8 mmol/L (-2.0-2.0); BG CARBOXYHEMOGLOBIN 0.3 % (0.5-1.5); BG FRACTION INSPIRED OXYGEN 21; BG METHEMOGLOBIN 0.3 % (0.0-1.5); BG OXYHEMOGLOBIN 94.4 % (94.0-97.0); BG PO2 73.6 mmHg (75.0-100.0); BG SAMPLE SITE RIGHT RADIAL; BG TOTAL HEMOGLOBIN 9.3 g/dL (12.0-18.0); BG VENT MODE ROOM AIR
[2017-06-06 10:37] LABS: HEMATOCRIT. 26.4 % (36.0-48.0); HEMOGLOBIN. 7.7 g/dL (12.0-16.0); MEAN CORPUSCULAR HEMOGLOBIN 21.4 pg (28.0-32.0); MEAN PLATELET VOLUME 7.5 fl (7.4-10.4); PLATELET 346 x1000/uL (130-400); RED BLOOD CELL COUNT 3.62 mill/uL (4.2-5.4); RED CELL DISTRIBUTION WIDTH 22.1 % (11.6-14.6)
[2017-06-06] MEDS: DILTIAZEM HCL 30MG TABLET PO SCH ×2 (12:54→17:44)
[2017-06-06 14:00] LABS: CARBON DIOXIDE 30 mEq/L (21-32); CHLORIDE 99 mEq/L (98-107); THEOPHYLLINE 7.3 ug/mL (10-20)
[2017-06-06] MEDS: LEVOFLOXACIN 500MG PREMIX 100 ML IV SCH (14:41)
[2017-06-06 18:32] LABS: TOTAL IRON BINDING CAPACITY 337 ug/dL (250-450)
[2017-06-06 20:00] VITALS: BP 146/77
[2017-06-06 20:06] LABS: PLATELET ESTIMATE NORMAL
[2017-06-06] MEDS: MONTELUKAST SODIUM 10MG TABLET PO SCH (20:59)
[2017-06-06] MEDS: TRAZODONE HCL 100MG TABLET PO SCH (20:59)
[2017-06-06 21:24] VITALS: BP 114/79
[2017-06-06 21:54] VITALS: BP 109/64
[2017-06-06 22:00] VITALS: BP 109/72
[2017-06-06 22:30] VITALS: BP 109/72
[2017-06-06 23:26] VITALS: BP 108/45
[2017-06-07] VITALS (12 sets, daily range): BP systolic 95–165; BP diastolic 40–119
[2017-06-07] MEDS: IPRATROPIUM/ALBUTEROL 0.5-3(2.5)MG/3ML NEB INH SCH ×3 (00:53→14:35)
[2017-06-07] MEDS: DIPHENHYDRAMINE 50MG/ML VIAL IV PRN ×3 (05:49→20:00)
[2017-06-07] MEDS: HYDROMORPHONE HCL/PF 2MG/ML CPJ IV PRN ×3 (05:49→19:56)
[2017-06-07] MEDS: DILTIAZEM HCL 30MG TABLET PO SCH ×4 (07:55→17:54)
[2017-06-07] MEDS: BLOOD SUGAR DIAGNOSTIC STRIP TEST SCH ×3 (08:15→17:56)
[2017-06-07] MEDS: THEOPHYLLINE ANHYDROUS 80 MG/15 ML 120ML PO SCH ×2 (09:14→14:38)
[2017-06-07] MEDS: INSULIN LISPRO 100 UNITS/ML SUBCUT SCH ×3 (09:15→17:55)
[2017-06-07] MEDS: POTASSIUM CHLORIDE 20MEQ TABLET SR PO SCH (09:16)
[2017-06-07] MEDS: GABAPENTIN 300MG CAPSULE PO SCH ×3 (09:16→17:54)
[2017-06-07] MEDS: LEVETIRACETAM 500MG TABLET PO SCH ×2 (09:16→17:54)
[2017-06-07] MEDS: TERBUTALINE SULFATE 2.5MG TABLET PO SCH ×3 (09:16→17:54)
[2017-06-07] MEDS: PREDNISONE 20MG TABLET PO SCH ×2 (09:16→17:54)
[2017-06-07] MEDS: LOSARTAN POTASSIUM 100 MG TABLET PO SCH (09:16)
[2017-06-07] MEDS: FUROSEMIDE 40MG TABLET PO SCH (09:16)
[2017-06-07] MEDS: BUDESONIDE 0.5MG/2ML NEB HHN SCH (09:21)
[2017-06-07] MEDS: QUETIAPINE FUMARATE 50MG TABLET PO SCH (09:34)
[2017-06-07 11:50] LABS: HEMATOCRIT. 29.2 % (36.0-48.0); HEMOGLOBIN. 8.8 g/dL (12.0-16.0); MEAN CORPUSCULAR HEMOGLOBIN 22.2 pg (28.0-32.0); MEAN CORPUSCULAR VOLUME 73.6 fL (81.0-99.0); MEAN PLATELET VOLUME 7.3 fl (7.4-10.4); PLATELET 276 x1000/uL (130-400); RED BLOOD CELL COUNT 3.96 mill/uL (4.2-5.4); RED CELL DISTRIBUTION WIDTH 22.2 % (11.6-14.6)
[2017-06-07 14:20] LABS: PLATELET ESTIMATE NORMAL
[2017-06-07] MEDS: LEVOFLOXACIN 500MG PREMIX 100 ML IV SCH (14:38)
== END 2017-06-07 21:00 | disposition home or self-care (01) | DRG 189 ==
LOC: ER 13:37 → 5EST 17:13 → EDBEDREQSVC 17:18 → EDBEDREQTM 17:18 → EDBEDREQ 17:34 → ENRESERV 19:42
PROVIDERS: ADMIT Internal Medicine; ATTEND Internal Medicine
PROC: 30233N1 Transfusion of Nonautologous Red Blood Cells into Peripheral Vein, Percutaneous Approach (ICD-10-PCS; principal; 2017-06-06)
DX: J96.91 Respiratory failure, unspecified with hypoxia (principal); E88.81 Metabolic syndrome and other insulin resistance; I11.0 Hypertensive heart disease with heart failure; R65.10 Systemic inflammatory response syndrome (SIRS) of non-infectious origin without acute organ dysfunction; Z93.0 Tracheostomy status; E11.65 Type 2 diabetes mellitus with hyperglycemia; I50.30 Unspecified diastolic (congestive) heart failure; J44.1 Chronic obstructive pulmonary disease with (acute) exacerbation; J45.901 Unspecified asthma with (acute) exacerbation; Z68.42 Body mass index [BMI] 45.0-49.9, adult; E66.01 Morbid (severe) obesity due to excess calories; G40.909 Epilepsy, unspecified, not intractable, without status epilepticus; F41.9 Anxiety disorder, unspecified; T38.0X5A Adverse effect of glucocorticoids and synthetic analogues, initial encounter; F32.9 Major depressive disorder, single episode, unspecified; G89.29 Other chronic pain; R00.0 Tachycardia, unspecified; M54.5 Low back pain; D64.9 Anemia, unspecified; M43.16 Spondylolisthesis, lumbar region; K76.0 Fatty (change of) liver, not elsewhere classified; I08.3 Combined rheumatic disorders of mitral, aortic and tricuspid valves; Z82.49 Family history of ischemic heart disease and other diseases of the circulatory system; Z93.1 Gastrostomy status; Z88.1 Allergy status to other antibiotic agents; Z91.041 Radiographic dye allergy status; Z88.8 Allergy status to other drugs, medicaments and biological substances; Z91.018 Allergy to other foods; Y92.89 Other specified places as the place of occurrence of the external cause
CPT/HCPCS: 36415; 36569; 36600; 71010; 72148; 76700; 76937; 80048; 80053; 80061; 80198; 80305; 81001; 82375; 82805; 82962; 83540; 83550; 83735; 83880; 84443; 84484; 85025; 85379; 85610; 85730; 86850; 86900; 86920; 87040; 87077; 87086; 87186; 93005; 93306; 93970; 94640; 94664; 96365; 96366; 96375; 99285; C1725; J1170; J1200; J1815; J1956; J2270; J2405; J7050; J7512; J7620; J7626; P9016

== ENCOUNTER 2017-07-21 21:56 | Inpatient (IN) | payer MEDICARE, MEDICAID ==
[~2017-07-21] VITALS: Ht 157.5 cm; Wt 115.3 kg
[~2017-07-21 21:56] MED LIST changes: -ALBU05 NEB; +AMLO5TAB88 PO; -ARFO15VI2 NEB; -BUDE0.5A3 NEB; -CLON0.1T PO; -CYCL5TAB PO; -DIPH25CA83 PO; +DIVA250T45 PO; +FLOV22 INH; -FURO-151 PO; +FURO40TA5 PO; -IPRA0.2S51 IH; +LOSA100T14 PO; -LOSA50TA20 PO; -MONT10TA21 PO; +MONT10TA24 PO; -OMEP20CA10 PO; +POTA20TA82 PO; -PRED5DRO7 EACHEYE; -PRO AIR PO; -QUET50TA PO; +QUET50TA21 PO; +TERB2.5T2 PO; -TERBUTALINE GT; -THEO200T17 PO; +THEO80SO4 PO; -TIOT18CA3 INH; +TRAZ-132 PO; -VALPROATE SODIUM GT; +ZOLP5TAB8 PO
[2017-07-21] MEDS ORDERED: ONDANSETRON HCL 4MG/2ML VIAL IV NR (22:55)
[2017-07-21] MEDS ORDERED: MORPHINE SULFATE 10 MG/ML CPJ IV NR (22:55)
[2017-07-21] MEDS ORDERED: ALBUTEROL (0.083%) 2.5MG/3ML NEB HHN NR (22:55)
[2017-07-21] MEDS ORDERED: IPRATROPIUM BROMIDE (0.02%) 0.5MG/2.5ML NEB HHN NR (22:55)
[2017-07-21] MEDS ORDERED: MAGNESIUM 2 G PREMIX 50 ML IV NR (23:00)
[2017-07-21] MEDS ORDERED: IPRATROPIUM/ALBUTEROL 0.5-3(2.5)MG/3ML NEB ONE (23:09)
[2017-07-21] MEDS ORDERED: ALBUTEROL (0.5%) 2.5MG/0.5ML NEB HHN ONE (23:09)
[2017-07-21 23:16] LABS: BASOPHILS % 0.3 % (0.0-2.0); EOSINOPHILS % 0.6 % (0.0-5.0); HEMATOCRIT. 32.3 % (36.0-48.0); HEMOGLOBIN. 9.9 g/dL (12.0-16.0); LYMPHOCYTES % 17.7 % (20.0-50.0); MEAN CORPUSCULAR HEMOGLOBIN 21.6 pg (28.0-32.0); MEAN PLATELET VOLUME 7.2 fl (7.4-10.4); MONOCYTES % 10.8 % (2.0-8.0); NEUTROPHILS % 70.6 % (40.0-76.0); PLATELET 274 x1000/uL (130-400); RED BLOOD CELL COUNT 4.55 mill/uL (4.2-5.4); RED CELL DISTRIBUTION WIDTH 21.1 % (11.6-14.6)
[2017-07-21 23:30] LABS: CARBON DIOXIDE 26 mEq/L (21-32); CHLORIDE 106 mEq/L (98-107); TROPONIN I < 0.02 ng/mL (0.00-0.04)
[2017-07-22] MEDS ORDERED: MORPHINE SULFATE 4 MG/ML CPJ (NOT FOR IM USE) IV ONE (02:30)
[2017-07-22] MEDS ORDERED: IPRATROPIUM BROMIDE (0.02%) 0.5MG/2.5ML NEB HHN STA (06:06)
[2017-07-22] MEDS ORDERED: ALBUTEROL (0.083%) 2.5MG/3ML NEB HHN STA (06:06)
[2017-07-22] MEDS ORDERED: ARFO15VI2 IH (08:57)
[2017-07-22] MEDS ORDERED: ALBU2.5V13 IH (09:02)
[2017-07-22] MEDS ORDERED: ATROV IH (09:02)
[2017-07-22] MEDS ORDERED: FLOV11 IH (09:02)
[2017-07-22] MEDS ORDERED: BUDE0.5A3 IH (09:02)
[2017-07-22] MEDS ORDERED: [UNRECOGNIZED DRUG - OTHER] (09:03)
[2017-07-22] MEDS ORDERED: OMEP20CA10 PO (09:13)
[2017-07-22] MEDS ORDERED: METR250T4 PO (09:13)
[2017-07-22] MEDS ORDERED: CLON0.1T PO (09:13)
[2017-07-22] MEDS ORDERED: ALPR-392 PO (09:13)
[2017-07-22] MEDS ORDERED: PANT20TA3 PO (09:13)
[2017-07-22] MEDS ORDERED: METO25TA6 PO (09:13)
[2017-07-22] MEDS ORDERED: ZOLP5TAB8 PO (09:13)
[2017-07-22] MEDS ORDERED: CYCL5TAB PO (09:13)
[2017-07-22] MEDS ORDERED: TRAZ-132 PO (09:13)
[2017-07-22] MEDS ORDERED: CYCL10TA7 PO (09:15)
[2017-07-22] MEDS ORDERED: B50 GT (09:15)
[2017-07-22 09:41] VITALS: BP 142/73
[2017-07-22 10:00] VITALS: BP 149/76
[2017-07-22] MEDS ORDERED: IPRATROPIUM/ALBUTEROL 0.5-3(2.5)MG/3ML NEB HHN PRN (12:30)
[2017-07-22] MEDS: IPRATROPIUM/ALBUTEROL 0.5-3(2.5)MG/3ML NEB HHN SCH ×3 (12:34→20:07)
[2017-07-22] MEDS: ENOXAPARIN 30MG/0.3ML SYR SUBCUT SCH ×2 (12:42→21:00)
[2017-07-22] MEDS: MORPHINE SULFATE 4 MG/ML CPJ (NOT FOR IM USE) IV PRN ×2 (12:51→17:06)
[2017-07-22 14:00] VITALS: BP 110/44
[2017-07-22 15:25] LABS: CREATINE KINASE 32 IU/L (26-192); CREATINE KINASE MB FRACTION 2.4 ng/mL (0.5-3.6); TROPONIN I < 0.02 ng/mL (0.00-0.04)
[2017-07-22] MEDS ORDERED: DIPHENHYDRAMINE 50MG CAPSULE GT SCH (15:30)
[2017-07-22] MEDS ORDERED: METRONIDAZOLE 250MG TABLET PO SCH (15:45)
[2017-07-22] MEDS: LEVETIRACETAM 500MG TABLET PO SCH (16:58)
[2017-07-22] MEDS: ONDANSETRON HCL 4MG/2ML VIAL IV PRN (16:58)
[2017-07-22] MEDS ORDERED: DEXTROSE 50% WATER 50ML SYRINGE IV PRN (17:15)
[2017-07-22] MEDS: QUETIAPINE FUMARATE 50MG TABLET PO SCH (17:27)
[2017-07-22] MEDS: BLOOD SUGAR DIAGNOSTIC STRIP TEST SCH ×2 (17:27→21:04)
[2017-07-22] MEDS: MONTELUKAST SODIUM 10MG TABLET PO SCH (17:35)
[2017-07-22] MEDS: INSULIN LISPRO 100 UNITS/ML SUBCUT SCH ×2 (17:38→21:00)
[2017-07-22 18:00] VITALS: BP 124/78
[2017-07-22 20:00] VITALS: BP 177/74
[2017-07-22] MEDS: METOPROLOL TARTRATE 25MG TABLET PO SCH (21:04)
[2017-07-22] MEDS: TRAZODONE HCL 100MG TABLET PO SCH (21:05)
[2017-07-22] MEDS: ZOLPIDEM TARTRATE 5MG TABLET PO SCH (21:05)
[2017-07-22] MEDS: THEOPHYLLINE ANHYDROUS 80 MG/15 ML 120ML PO SCH (21:06)
[2017-07-22] MEDS: CYCLOBENZAPRINE 10MG TABLET PO SCH (21:06)
[2017-07-22 22:00] VITALS: BP 170/70
[2017-07-22 23:27] LABS: CREATINE KINASE 30 IU/L (26-192); CREATINE KINASE MB FRACTION 1.7 ng/mL (0.5-3.6); TROPONIN I < 0.02 ng/mL (0.00-0.04)
[2017-07-23] VITALS (12 sets, daily range): BP systolic 94–164; BP diastolic 52–80
[2017-07-23] MEDS: IPRATROPIUM/ALBUTEROL 0.5-3(2.5)MG/3ML NEB HHN SCH ×6 (00:29→20:18)
[2017-07-23] MEDS: QUETIAPINE FUMARATE 50MG TABLET PO SCH ×2 (05:23→16:24)
[2017-07-23] MEDS: THEOPHYLLINE ANHYDROUS 80 MG/15 ML 120ML PO SCH ×3 (05:24→21:59)
[2017-07-23] MEDS: HYDROMORPHONE HCL/PF 2MG/ML CPJ IM PRN ×3 (05:25→22:25)
[2017-07-23] MEDS: ONDANSETRON HCL 4MG/2ML VIAL IV PRN ×2 (05:40→16:24)
[2017-07-23 07:25] LABS: BASOPHILS % 0.1 % (0.0-2.0); EOSINOPHILS % 2.2 % (0.0-5.0); HEMATOCRIT. 30.8 % (36.0-48.0); HEMOGLOBIN. 9.3 g/dL (12.0-16.0); MEAN CORPUSCULAR VOLUME 72.9 fL (81.0-99.0); MEAN PLATELET VOLUME 7.8 fl (7.4-10.4); MONOCYTES % 9.5 % (2.0-8.0); NEUTROPHILS % 75.2 % (40.0-76.0); PLATELET 266 x1000/uL (130-400); RED BLOOD CELL COUNT 4.22 mill/uL (4.2-5.4); RED CELL DISTRIBUTION WIDTH 21.3 % (11.6-14.6)
[2017-07-23] MEDS: BLOOD SUGAR DIAGNOSTIC STRIP TEST SCH ×4 (07:59→21:58)
[2017-07-23] MEDS: INSULIN LISPRO 100 UNITS/ML SUBCUT SCH ×4 (08:00→22:25)
[2017-07-23 08:14] LABS: CARBON DIOXIDE 28 mEq/L (21-32); CHLORIDE 103 mEq/L (98-107)
[2017-07-23] MEDS: TERBUTALINE SULFATE 2.5MG TABLET PO SCH ×3 (08:20→16:26)
[2017-07-23] MEDS: METOPROLOL TARTRATE 25MG TABLET PO SCH ×2 (08:22→21:00)
[2017-07-23] MEDS: LOSARTAN POTASSIUM 100 MG TABLET PO SCH (08:22)
[2017-07-23] MEDS: GABAPENTIN 300MG CAPSULE PO SCH ×3 (08:22→16:24)
[2017-07-23] MEDS: CLONIDINE 0.1MG TABLET PO SCH (08:22)
[2017-07-23] MEDS: PREDNISONE 20MG TABLET PO SCH (08:22)
[2017-07-23] MEDS: LEVETIRACETAM 500MG TABLET PO SCH ×2 (08:22→16:24)
[2017-07-23] MEDS: FUROSEMIDE 40MG TABLET PO SCH ×2 (08:23→16:24)
[2017-07-23] MEDS: OMEPRAZOLE 20MG CAPSULE EXTENDED RELEASE PO SCH (08:23)
[2017-07-23] MEDS: POTASSIUM CHLORIDE 20MEQ TABLET SR PO SCH ×2 (08:23→16:24)
[2017-07-23] MEDS: ENOXAPARIN 30MG/0.3ML SYR SUBCUT SCH ×3 (08:24→21:00)
[2017-07-23 08:46] LABS: CREATINE KINASE 36 IU/L (26-192); CREATINE KINASE MB FRACTION 1.4 ng/mL (0.5-3.6); TROPONIN I < 0.02 ng/mL (0.00-0.04)
[2017-07-23] MEDS ORDERED: POTASSIUM CHLORIDE 20MEQ TABLET SR PO SCH (09:00)
[2017-07-23] MEDS ORDERED: ENOXAPARIN 40MG/0.4ML SYR SUBCUT SCH (09:00)
[2017-07-23] MEDS ORDERED: FUROSEMIDE 40MG TABLET PO SCH (09:00)
[2017-07-23] MEDS: DIVALPROEX SODIUM 250MG ER TABLET PO SCH (10:06)
[2017-07-23 10:58] LABS: BG BASE EXCESS 7.1 mmol/L (-2.0-2.0); BG CARBOXYHEMOGLOBIN 0.3 % (0.5-1.5); BG DEOXYHEMOGLOBIN 2.8 % (0.0-5.0); BG FRACTION INSPIRED OXYGEN 35; BG HCO3 ACT 31.9 mmol/L (22.0-26.0); BG METHEMOGLOBIN 0.5 % (0.0-1.5); BG OXYGEN SATURATION 97.2 % (92.0-98.5); BG OXYHEMOGLOBIN 96.4 % (94.0-97.0); BG PCO2 47.1 mmHg (35.0-45.0); BG PH 7.449 (7.350-7.450); BG PO2 96.8 mmHg (75.0-100.0); BG SAMPLE SITE RIGHT RADIAL; BG TOTAL HEMOGLOBIN 9.9 g/dL (12.0-18.0); BG VENT MODE MASK - AEROSOL
[2017-07-23] MEDS: AMOXICILLIN/POTASSIUM CLAVULANATE 500/125MG TAB PO SCH ×2 (11:56→21:58)
[2017-07-23] MEDS: LORATADINE 10MG TABLET PO SCH (11:56)
[2017-07-23] MEDS: SILDENAFIL CITRATE 20MG TABLET PO SCH ×2 (14:11→22:12)
[2017-07-23] MEDS: DIPHENHYDRAMINE 12.5MG/5ML UDC GT PRN (14:55)
[2017-07-23] MEDS: MONTELUKAST SODIUM 10MG TABLET PO SCH (16:24)
[2017-07-23 18:37] LABS: CHLORIDE 103 mEq/L (98-107)
[2017-07-23 18:42] LABS: CARBON DIOXIDE 27 mEq/L (21-32); THEOPHYLLINE 5.2 ug/mL (10-20)
[2017-07-23] MEDS: CYCLOBENZAPRINE 10MG TABLET PO SCH (21:58)
[2017-07-23] MEDS: ZOLPIDEM TARTRATE 5MG TABLET PO SCH (21:58)
[2017-07-23] MEDS: TRAZODONE HCL 100MG TABLET PO SCH (21:59)
[2017-07-23] MEDS: FLUTICASONE PROPIONATE 50MCG/SPRAY BOTTLE BOTHNSTRLS SCH (22:06)
[2017-07-24] VITALS (10 sets, daily range): BP systolic 96–145; BP diastolic 31–96
[2017-07-24] MEDS: IPRATROPIUM/ALBUTEROL 0.5-3(2.5)MG/3ML NEB HHN SCH ×6 (00:56→20:33)
[2017-07-24] MEDS: QUETIAPINE FUMARATE 50MG TABLET PO SCH ×2 (06:00→17:16)
[2017-07-24] MEDS: THEOPHYLLINE ANHYDROUS 80 MG/15 ML 120ML PO SCH ×3 (06:01→21:10)
[2017-07-24] MEDS: SILDENAFIL CITRATE 20MG TABLET PO SCH ×3 (06:23→21:09)
[2017-07-24] MEDS: BLOOD SUGAR DIAGNOSTIC STRIP TEST SCH ×4 (07:30→21:09)
[2017-07-24] MEDS: INSULIN LISPRO 100 UNITS/ML SUBCUT SCH ×4 (08:00→21:24)
[2017-07-24 08:33] LABS: BASOPHILS % 0.8 % (0.0-2.0); EOSINOPHILS % 1.1 % (0.0-5.0); HEMATOCRIT. 28.8 % (36.0-48.0); HEMOGLOBIN. 8.9 g/dL (12.0-16.0); LYMPHOCYTES % 15.6 % (20.0-50.0); MEAN CORPUSCULAR HEMOGLOBIN 22.3 pg (28.0-32.0); MEAN CORPUSCULAR VOLUME 71.9 fL (81.0-99.0); MEAN PLATELET VOLUME 7.5 fl (7.4-10.4); MONOCYTES % 9.8 % (2.0-8.0); NEUTROPHILS % 72.7 % (40.0-76.0); PLATELET 245 x1000/uL (130-400); RED CELL DISTRIBUTION WIDTH 21.6 % (11.6-14.6)
[2017-07-24] MEDS: HYDROMORPHONE HCL/PF 2MG/ML CPJ IM PRN ×2 (08:47→17:45)
[2017-07-24] MEDS: METOPROLOL TARTRATE 25MG TABLET PO SCH ×2 (08:51→21:08)
[2017-07-24] MEDS: OMEPRAZOLE 20MG CAPSULE EXTENDED RELEASE PO SCH (08:51)
[2017-07-24] MEDS: LEVETIRACETAM 500MG TABLET PO SCH ×2 (08:51→17:17)
[2017-07-24] MEDS: GABAPENTIN 300MG CAPSULE PO SCH ×3 (08:51→17:16)
[2017-07-24] MEDS: PREDNISONE 20MG TABLET PO SCH (08:52)
[2017-07-24] MEDS: POTASSIUM CHLORIDE 20MEQ TABLET SR PO SCH ×2 (08:52→17:17)
[2017-07-24] MEDS: FUROSEMIDE 40MG TABLET PO SCH ×2 (08:52→17:17)
[2017-07-24] MEDS: LOSARTAN POTASSIUM 100 MG TABLET PO SCH (08:52)
[2017-07-24] MEDS: AMOXICILLIN/POTASSIUM CLAVULANATE 500/125MG TAB PO SCH ×2 (08:52→21:08)
[2017-07-24] MEDS: DIVALPROEX SODIUM 250MG ER TABLET PO SCH (08:59)
[2017-07-24] MEDS: LORATADINE 10MG TABLET PO SCH (08:59)
[2017-07-24] MEDS: TERBUTALINE SULFATE 2.5MG TABLET PO SCH ×3 (08:59→17:16)
[2017-07-24] MEDS: CLONIDINE 0.1MG TABLET PO SCH (08:59)
[2017-07-24] MEDS: ENOXAPARIN 30MG/0.3ML SYR SUBCUT SCH ×2 (09:00→21:00)
[2017-07-24] MEDS: FLUTICASONE PROPIONATE 50MCG/SPRAY BOTTLE BOTHNSTRLS SCH ×2 (09:04→21:10)
[2017-07-24] MEDS: DIPHENHYDRAMINE 12.5MG/5ML UDC GT PRN (14:23)
[2017-07-24] MEDS: MONTELUKAST SODIUM 10MG TABLET PO SCH (17:18)
[2017-07-24] MEDS: FUROSEMIDE 40MG/4ML VIAL IVP SCH (17:45)
[2017-07-24] MEDS: TRAZODONE HCL 100MG TABLET PO SCH (21:08)
[2017-07-24] MEDS: ZOLPIDEM TARTRATE 5MG TABLET PO SCH (21:08)
[2017-07-24] MEDS: CYCLOBENZAPRINE 10MG TABLET PO SCH (21:10)
[2017-07-25] VITALS (7 sets, daily range): BP systolic 83–142; BP diastolic 42–88
[2017-07-25] MEDS: IPRATROPIUM/ALBUTEROL 0.5-3(2.5)MG/3ML NEB HHN SCH ×4 (00:41→11:54)
[2017-07-25] MEDS: QUETIAPINE FUMARATE 50MG TABLET PO SCH (05:54)
[2017-07-25] MEDS: THEOPHYLLINE ANHYDROUS 80 MG/15 ML 120ML PO SCH ×2 (05:54→13:20)
[2017-07-25] MEDS: SILDENAFIL CITRATE 20MG TABLET PO SCH ×3 (05:56→13:29)
[2017-07-25] MEDS: HYDROMORPHONE HCL/PF 2MG/ML CPJ IM PRN (06:02)
[2017-07-25] MEDS: BLOOD SUGAR DIAGNOSTIC STRIP TEST SCH ×2 (07:30→13:22)
[2017-07-25] MEDS: INSULIN LISPRO 100 UNITS/ML SUBCUT SCH ×2 (08:00→13:22)
[2017-07-25] MEDS: FUROSEMIDE 40MG/4ML VIAL IVP SCH (08:48)
[2017-07-25] MEDS: DIPHENHYDRAMINE 12.5MG/5ML UDC GT PRN (08:48)
[2017-07-25] MEDS: CLONIDINE 0.1MG TABLET PO SCH (08:49)
[2017-07-25] MEDS: AMOXICILLIN/POTASSIUM CLAVULANATE 500/125MG TAB PO SCH (08:50)
[2017-07-25] MEDS: DIVALPROEX SODIUM 250MG ER TABLET PO SCH (08:50)
[2017-07-25] MEDS: POTASSIUM CHLORIDE 20MEQ TABLET SR PO SCH (08:51)
[2017-07-25] MEDS: GABAPENTIN 300MG CAPSULE PO SCH ×2 (08:51→13:21)
[2017-07-25] MEDS: LOSARTAN POTASSIUM 100 MG TABLET PO SCH (08:52)
[2017-07-25] MEDS: LEVETIRACETAM 500MG TABLET PO SCH (08:52)
[2017-07-25] MEDS: PREDNISONE 20MG TABLET PO SCH (08:52)
[2017-07-25] MEDS: TERBUTALINE SULFATE 2.5MG TABLET PO SCH ×2 (08:53→13:21)
[2017-07-25] MEDS: ENOXAPARIN 30MG/0.3ML SYR SUBCUT SCH (08:53)
[2017-07-25] MEDS: METOPROLOL TARTRATE 25MG TABLET PO SCH (08:53)
[2017-07-25] MEDS ORDERED: FAMOTIDINE 20MG TABLET PO SCH (09:00)
[2017-07-25] MEDS: FLUTICASONE PROPIONATE 50MCG/SPRAY BOTTLE BOTHNSTRLS SCH (09:00)
[2017-07-25] MEDS: LORATADINE 10MG TABLET PO SCH (09:00)
[2017-07-25 10:08] LABS: BASOPHILS % 0.7 % (0.0-2.0); EOSINOPHILS % 0.9 % (0.0-5.0); HEMATOCRIT. 28.7 % (36.0-48.0); HEMOGLOBIN. 8.6 g/dL (12.0-16.0); LYMPHOCYTES % 13.3 % (20.0-50.0); MEAN CORPUSCULAR HEMOGLOBIN 21.6 pg (28.0-32.0); MEAN CORPUSCULAR VOLUME 71.9 fL (81.0-99.0); MEAN PLATELET VOLUME 7.9 fl (7.4-10.4); MONOCYTES % 9.1 % (2.0-8.0); PLATELET 280 x1000/uL (130-400); RED BLOOD CELL COUNT 3.99 mill/uL (4.2-5.4); RED CELL DISTRIBUTION WIDTH 21.6 % (11.6-14.6)
[2017-07-25 10:24] LABS: CARBON DIOXIDE 31 mEq/L (21-32); CHLORIDE 100 mEq/L (98-107)
== END 2017-07-25 15:10 | disposition home or self-care (01) | DRG 871 ==
LOC: ER 22:27 → 5EST 07-22 00:45 → EDBEDREQTM 07-22 00:55 → EDBEDREQ 07-22 00:55 → ENRESERV 07-22 07:09
PROVIDERS: ADMIT Internal Medicine Nephrology; ATTEND Internal Medicine Nephrology
DX: A41.9 Sepsis, unspecified organism (principal); I50.31 Acute diastolic (congestive) heart failure; J96.11 Chronic respiratory failure with hypoxia; I27.29 Other secondary pulmonary hypertension; Z93.0 Tracheostomy status; J45.22 Mild intermittent asthma with status asthmaticus; J45.902 Unspecified asthma with status asthmaticus; J45.901 Unspecified asthma with (acute) exacerbation; D63.8 Anemia in other chronic diseases classified elsewhere; E11.9 Type 2 diabetes mellitus without complications; E66.01 Morbid (severe) obesity due to excess calories; J32.9 Chronic sinusitis, unspecified; E83.51 Hypocalcemia; F32.9 Major depressive disorder, single episode, unspecified; F41.0 Panic disorder [episodic paroxysmal anxiety]; F42.9 Obsessive-compulsive disorder, unspecified; E87.70 Fluid overload, unspecified; G40.909 Epilepsy, unspecified, not intractable, without status epilepticus; G89.4 Chronic pain syndrome; I11.0 Hypertensive heart disease with heart failure; I27.81 Cor pulmonale (chronic); Z79.52 Long term (current) use of systemic steroids; Z88.8 Allergy status to other drugs, medicaments and biological substances; Z88.1 Allergy status to other antibiotic agents; Z91.041 Radiographic dye allergy status
CPT/HCPCS: 36415; 36600; 70486; 71010; 80048; 80053; 80198; 82375; 82550; 82553; 82805; 82962; 83605; 83735; 83880; 84484; 85025; 87040; 93005; 94640; 94664; 96374; 96375; 99291; C1893; J1170; J1650; J1815; J1940; J2270; J2405; J3475; J7512; J7611; J7620; Q0163

== ENCOUNTER 2017-08-02 10:00 | Emergency (ER) | payer MEDICARE, MEDICAID ==
[~2017-08-02] VITALS: Ht 167.6 cm; Wt 110.0 kg
[~2017-08-02 10:00] MED LIST changes: +ALBU2.5V13 IH; +ALPR-392 PO; +AMIODARONE HCL 50MG/ML 3ML VIAL IV ONE; -AMLO5TAB88 PO; +ARFO15VI2 IH; +ATROV IH; +B50 GT; +BUDE0.5A3 IH; +CLON0.1T PO; +CYCL10TA7 PO; +EPINEPHRINE 0.1MG/ML (1:10,000) 10ML SYR ONE; +FLOV11 IH; -FLOV22 INH; +MAGNESIUM SULFATE 4G IN WATER 100ML PREMIX IV ONE; +METO25TA6 PO; +METR250T4 PO; +OMEP20CA10 PO; +PANT20TA3 PO; +[UNRECOGNIZED DRUG - OTHER]
[2017-08-02 10:03] VITALS: BP 0/0
== END 2017-08-02 12:55 | disposition expired ==
LOC: ER 10:09
DX: I46.9 Cardiac arrest, cause unspecified (principal); J44.9 Chronic obstructive pulmonary disease, unspecified; E11.9 Type 2 diabetes mellitus without complications; F41.9 Anxiety disorder, unspecified; I11.0 Hypertensive heart disease with heart failure; D64.9 Anemia, unspecified; I50.9 Heart failure, unspecified; Z93.0 Tracheostomy status; Z93.1 Gastrostomy status; Z98.890 Other specified postprocedural states; Z88.8 Allergy status to other drugs, medicaments and biological substances; Z88.1 Allergy status to other antibiotic agents; Z88.6 Allergy status to analgesic agent
CPT/HCPCS: 92950; 99285; J0171; J0282; J3475